=== PATIENT | male | born 1975 | race Hispanic/Latino ===

== ENCOUNTER 2024-04-07 09:24 | Inpatient (IN) | payer MEDICAID ==
[~2024-04-07] VITALS: Ht 182.9 cm; Wt 92.3 kg
[2024-04-07] VITALS (7 sets, daily range): BP systolic 99–116; BP diastolic 71–85
[~2024-04-07 09:24] MED LIST: NORCO 10-325 T1 EACH PO
[2024-04-07] MEDS ORDERED: SODIUM CHLORIDE 0.9% 1,000 ML IV ONE ×2 (09:45→10:00)
[2024-04-07 09:51] LABS: BASOPHILS 0.1 % (0-2); EOSINOPHILS 0.1 % (0-6); HEMATOCRIT 45.9 % (35.0-50.0); HEMOGLOBIN 16.3 g/dL (12.0-18.0); LYMPHOCYTES 12.5 % (24-44); MCH 34.3 (27-36); MCHC 35.5 g/dl (30-36); MCV 96.7 fl (81-99); MONOCYTES 6.8 % (0-12); NEUTROPHILS 80.5 % (39-80); PLATELET COUNT 199 K/uL (140-440); RBC 4.74 M/ul (4.3-5.7); RDW 12.5 (10.5-15.0)
[2024-04-07] MEDS ORDERED: HYDROmorphone HCL 1 MG/ML SYR IV PRN ×3 (10:00→17:45)
[2024-04-07] MEDS ORDERED: ondansetron HCL 4 MG/2 ML VIAL IV ONE (10:00)
[2024-04-07 10:09] LABS: ALBUMIN 3.3 g/dL (3.4-5.0); ALBUMIN/GLOBULIN RATIO 0.8 (1.1-2.4); ANION GAP 15.2 (7-21); BILIRUBIN, TOTAL 2.3 ng/dL (0.2-1.0); BUN/CREATININE RATIO 11.81 (6.0-28.6); CALCIUM 8.4 mg/dL (8.5-10.1); CREATININE, SERUM 1.1 mg/dL (0.70-1.30); POTASSIUM 3.2 mmol/L (3.5-5.1); PROTEIN, TOTAL 7.4 g/dL (6.4-8.2)
[2024-04-07 10:12] LABS: LACTIC ACID, BLOOD 1.8 mmol/L (0.4-2.0)
[2024-04-07] MEDS ORDERED: PIPERACILLIN/TAZOBACTAM 4.5 GM in DEXTROSE 5% 100 ML IV ONE ×2 (10:15→14:30)
[2024-04-07 11:09] LABS: BILIRUBIN, URINE NEGATIVE (negative); BLOOD/HGB, URINE NEGATIVE (Negative); KETONE, URINE TRACE (Negative); LEUK ESTERASE, URINE NEGATIVE (negative); NITRITE, URINE NEGATIVE (negative); PH, URINE 6.5 (5-7)
[2024-04-07] MEDS ORDERED: DEXTROSE 5% - LACTATED RINGERS 1,000 ML IV SCH ×2 (12:00→17:45)
[2024-04-07] MEDS ORDERED: ondansetron HCL 4 MG/2 ML VIAL IV PRN ×3 (12:00→17:45)
[2024-04-07] MEDS ORDERED: LIDOCAINE 1% W/ EPI 1:200,000 30 ML SDV ONE (12:27)
[2024-04-07] MEDS ORDERED: BUPIVACAINE HCL 0.25% 50 ML MDV ONE (12:28)
--- NOTE | 2024-04-07 14:01 | NUR ---
PATIENT TAKEN DOWN TO DAY SURGERY BY OR NURSE IN PREPARATION FOR SURGERY. DR. MEEK STILL TO SEE PATIENT SIGN CONSENT FORM. PATIENT'S SON SHANNAN ROMERO ACCOMPANYING HIM TO DAY SURGERY. PT STATES HIS PAIN IS 4/10 IN ABDOMEN, WHICH IS MUCH MORE TOLERABLE TO HIM THAN THE PAIN HE HAS BEEN HAVING OVER THE LAST SEVERAL DAYS AT HOME. SCDs ON. CHLORAPREP BATH DONE WELL.
--- NOTE | 2024-04-07 14:20 | NUR ---
Spoke with Dennis and his son Dennis for CM assessment. Pt has limitied I[employer], but declined to use the [employer]. Son Dennis is an adult and states he will interpret. Pt understands well and answers most questions without interpretation. Pt lives with his in a 1 story home with his teenage daughters. Son lives in [place] and they will all assist him. Pt states he does not use any DME and is active. He has been off work and does not have insurance. I called Krystin from [employer] and she has already spoken with the pt in the ER. Pt states he does not have a pcp, but has been seen by Tabatha in the past. I called and scheduled him to see Dr. Miranda on 04/15/24 at 1045. Pt denies other needs. They do not use a food bank, food stamps, or other resources. They are aware of [employer], but do not use their services. Pt plans on dc to home with and family when he is cleared for DC.
[2024-04-07] MEDS ORDERED: dexmedeTOMIDine HCl 200 MCG/2 ML VIAL ONE (15:08)
[2024-04-07] MEDS ORDERED: ondansetron HCL 4 MG/2 ML VIAL ONE (15:08)
[2024-04-07] MEDS ORDERED: KETAMINE in NS 50 MG/5 ML SYR ONE (15:08)
[2024-04-07] MEDS ORDERED: ACETAMINOPHEN 1,000 MG/100 ML VIAL ONE (15:08)
[2024-04-07] MEDS ORDERED: LIDOCAINE HCL 2% 5 ML SDV ONE (15:08)
[2024-04-07] MEDS ORDERED: propofoL 200 MG/20 ML VIAL ONE (15:08)
[2024-04-07] MEDS ORDERED: SODIUM CHLORIDE 0.9% 40 ML IV ONE ×2 (15:08→16:33)
[2024-04-07] MEDS ORDERED: ROCURONIUM BROMIDE 50 MG/5 ML SYR ONE (15:08)
[2024-04-07] MEDS ORDERED: DEXAMETHASONE SOD PHOS 4 MG/ML VIAL ONE ×2 (15:08→16:33)
[2024-04-07] MEDS ORDERED: fentaNYL citrate 100 MCG/2 ML VIAL ONE (15:08)
[2024-04-07] MEDS ORDERED: MAGNESIUM SULFATE 1 GM/2 ML VIAL ONE (15:08)
[2024-04-07] MEDS ORDERED: droPERidol 5 MG/2 ML VIAL IV PRN (15:30)
[2024-04-07] MEDS ORDERED: IBLOOD GLUCOSE TEST STRIP 1 EA TEST VI PRN (15:30)
[2024-04-07] MEDS ORDERED: fentaNYL citrate 50 MCG/ML SDV IV PRN (15:30)
[2024-04-07] MEDS ORDERED: NALOXONE HCL 0.4 MG SYR IV PRN (15:30)
[2024-04-07] MEDS ORDERED: Ropivacaine HCl 0.5% 30 ML VIAL ONE (16:33)
[2024-04-07] MEDS ORDERED: KETOROLAC TROMETHAMINE 30 MG/ML VIAL ONE (16:42)
[2024-04-07] MEDS ORDERED: SUGAMMADEX SODIUM 200 MG/2 ML ML ONE (16:42)
--- NOTE | 2024-04-07 17:26 | NUR ---
patient takes no chronic meds
[2024-04-07] MEDS ORDERED: ENOXAPARIN SODIUM 40 MG/0.4 ML SYR SUB-Q SCH (17:43)
[2024-04-07] MEDS ORDERED: PANTOPRAZOLE SODIUM 40 MG/10 ML VIAL IV SCH (17:44)
[2024-04-07] MEDS ORDERED: PROCHLORPERAZINE EDISYLATE 10 MG/2 ML VIAL IV PRN (17:45)
[2024-04-07] MEDS ORDERED: HYDROCODONE/ACETA 5/325 TAB PO PRN (17:45)
[2024-04-07] MEDS ORDERED: ACETAMINOPHEN 325 MG TAB PO PRN (17:45)
[2024-04-07] MEDS ORDERED: ACETAMINOPHEN 650 MG SUPP PR PRN (17:45)
--- NOTE | 2024-04-07 18:08 | NUR ---
PT RETURNED FROM SURGERY. PT IS AWAKE AND ALERT, FOLLOWS COMMANDS AND ANSWERS QUESTIONS. PT SATS ARE 95% ON ROOM AIR, BP 100/71, PULSE 94, AND RR 14. PT INCISION COVERED WITH TAPE AND GUAZE IS CLEAN/DRY/INTACT. PT ABDOMEN IS DISTENDED, BUT DENIES ANY PAIN. PT HAS ICE PACK PLACED ON ABDOMEN. PT EDUCATED ON THE USE OF THE IS AND DEMONSTRATED KNOWLEDGE OF USE. PT LUNGS ARE CLEAR, AND BOWEL TONES ARE HYPOACTIVE. SCD'S PLACED ON PT. ICE CHIPS PROVIDED AT BEDSIDE. FAMILY AT BEDSIDE. PT HAS NO QUESTIONS OR NEEDS AT THIS TIME, CALL [facility] WITHIN REACH.
--- NOTE | 2024-04-07 18:27 | NUR ---
04/07/24 182 Reyna Decker 1727 PT ARRIVED IN PACU NON RESPONSIVE TO NOXIOUS STIMULI. CHIN LIFT HELD BY RN. 1738 PT REACTIVE. CHIN LIFT NOT REQUIRED. 174 ICE TO ABD. PT C/O ALITTLE PAIN. 180 TO ROOM 130. BED PLUGGED IN. REPORT GIVEN TO RN. FAMILY AT BEDSIDE.
--- NOTE | 2024-04-07 18:30 | EKG ---
[facility] [address] [facility] [place], [place] [address] Signed Sinus tachycardia Otherwise normal ECG No previous ECGs available Confirmed by Lucie Carson MD ([id number]) on 04/07/2024 6:29:58 PM Electronically Signed By: LUCIE CARSON 04/07/24 1830 PATIENT NAME: SHANNAN FRAGA Electrocardiogram DATE OF : 79 PHYSICIAN: LUCIE CARSON REPORT #: [id number] REPORT IS CONFIDENTIAL AND NOT TO BE RELEASED WITHOUT AUTHORIZATION
--- NOTE | 2024-04-07 20:00 | NUR ---
REPORT RECEIVED FROM DAY RN - PT RESTING IN BED ALERT WITH MULTIPLE FAMILY AT BEDSIDE. ASSESSMENT COMPLETE. PT DENIES PAIN, DRESSING IS C/D/I WITH ICE APPLIED. VS WNL. URINATING WITHOUT DIFFICULTY IN URINAL.
--- NOTE | 2024-04-07 21:16 | NUR ---
NO RT INTERVENTIONS REQUIRED AND TAKING OFF RT SERVICE. PLEASE CALL WITH CONCERNS OR O2 USE.
[2024-04-07] MEDS ORDERED: CEFEPIME HCL/D5W 2 GM/100 ML PIGGYBACK IV SCH (22:00)
--- NOTE | 2024-04-07 22:02 | NUR ---
PT RESTING IN BED ALERT AND ORIENTED. REPORTS PAIN /, PRN PROVIDED FOR THIS. ICE REMAINS ON ABD. VS WNL, ROOM AIR. PROVIDED LINENS TO STAY THE NIGHT. PT DENIES FURTHER NEEDS. CALL LIGHT IN REACH.
--- NOTE | 2024-04-07 22:29 | NUR ---
PT PLACED ON 2L O2 VIA NC TO SUSTAIN SPO2 <92% WHILE SLEEPING.
[2024-04-08] VITALS (11 sets, daily range): BP systolic 100–137; BP diastolic 66–94
--- NOTE | 2024-04-08 00:19 | NUR ---
PT RESTING COMFORTABLY IN BED WITH OUT SIGNS OF PAIN. VS WNL, NEEDING 2L O2 WHILE SLEEPING. ASSESSMENT UNCHANGED FROM PREVIOUS.
--- NOTE | 2024-04-08 01:40 | NUR ---
PT RESTING IN BED, RR EVEN AND UNLABORED. VS WNL ON MONITOR.
--- NOTE | 2024-04-08 02:21 | NUR ---
PT WAKES EASILY TO SOUND IN ROOM - STATES PAIN IS 4/10 AND REQUESTS PAIN MEDICATION. ICE APPLIED TO MIDLINE. URINAL USED, URINE CONCENTRATED BUT QUANTITY SUFFICENT.
--- NOTE | 2024-04-08 04:37 | NUR ---
PT RESTING IN BED WITH EYES CLOSED, RR EVEN AND UNLABORED. VS WNL ON MONITOR.
--- NOTE | 2024-04-08 05:25 | NUR ---
PT AWAKE IN BED AFTER LAB DRAW. REPORTS PAIN IS 1/10. DENIES NEEDS AT THIS TIME. DRESSING C/D/I, ICE APPLIED TO INCISION. VS WNL.
[2024-04-08 05:31] LABS: BASOPHILS 0.1 % (0-2); HEMATOCRIT 38.4 % (35.0-50.0); HEMOGLOBIN 13.1 g/dL (12.0-18.0); LYMPHOCYTES 6.7 % (24-44); MCH 33.8 (27-36); MCHC 34.2 g/dl (30-36); MCV 98.9 fl (81-99); MONOCYTES 5.5 % (0-12); NEUTROPHILS 87.7 % (39-80); PLATELET COUNT 152 K/uL (140-440); RBC 3.88 M/ul (4.3-5.7); RDW 12.5 (10.5-15.0)
[2024-04-08 05:46] LABS: ANION GAP 11.6 (7-21); BUN/CREATININE RATIO 11.36 (6.0-28.6); CALCIUM 7.8 mg/dL (8.5-10.1); CREATININE, SERUM 0.88 mg/dL (0.70-1.30); MAGNESIUM 2.6 mg/dL (1.8-2.4); PHOSPHORUS, INORGANIC 1.2 mg/dL (2.5-4.9); POTASSIUM 3.6 mmol/L (3.5-5.1)
--- NOTE | 2024-04-08 06:14 | CONS ---
[facility] [address] [place], [place] [address] Signed DATE OF CONSULTATION: 04/07/2024 CHIEF COMPLAINT: Diffuse generalized abdominal pain. HISTORY OF PRESENT ILLNESS: Dennis is a 48-year-old gentleman, who over four days has developed increasing diffuse generalized abdominal pain and now peritonitis. He has had fevers, diarrhea, and emesis. When he realized he was getting worse, he finally came to emergency room for evaluation. He had diffuse peritonitis. His abdomen is moderately distended. White count was actually normal along with the lactic acid. A chest x-ray was unremarkable. The CT scan of abdomen and pelvis shows his ruptured appendix with a 1.7 cm appendicolith in the mid appendix and diffuse ileus and fluid-filled small bowel. He was given IV fluids and Zosyn and I was asked to admit him as a general surgeon on-call while I was operating for another patient. In the meantime, he has been doing well. His son is with him. PAST MEDICAL HISTORY: None. PAST SURGICAL HISTORY: Repair right forearm fracture with metal remaining. SOCIAL HISTORY: He does not smoke or drink. He is , has three children. He drives. He works construction. He is to his , Feroz at [phone]. He prefers the [facility] pharmacy. He has no primary care provider. FAMILY HISTORY: None. REVIEW OF SYSTEMS: He had 10 systems reviewed with the help of his son who is fluently bilingual, but Dennis himself was also fairly bilingual as well. ALLERGIES: None. MEDICATIONS: None. PHYSICAL EXAMINATION: VITAL SIGNS: His blood pressure is 112/85, his heart rate is 108, respiratory rate 28, Electronically Signed By: LATASHA AMBROSE MD 04/08/24 0614 PATIENT NAME: DENNIS FRAGA CONSULTATION DATE OF : 79 REPORT #: [id number] PHYSICIAN: LATASHA AMBROSE MD PCP: NO PRIMARY CARE PHYSICIAN REPORT IS CONFIDENTIAL AND NOT TO BE RELEASED WITHOUT AUTHORIZATION [facility] [address] [place], [place] [address] Signed temperature is 101.3. He is 99% on room air. He is 6 feet tall, 89 kg with a body mass index of 26. GENERAL: Dennis is a 48-year-old gentleman, who is lying supine semi-recumbent in his hospital bed. He is a little diaphoretic, but otherwise doing well. LUNGS: Clear to auscultation bilaterally. HEART: Tachycardic. ABDOMEN: Moderately distended with diffuse peritonitis. LABORATORY DATA: White blood count 5.2, hemoglobin 16, neutrophils 80. Electrolytes unremarkable. UA was negative. Lactic acid 1.8, albumin 3.3. Blood cultures were sent x2. RADIOGRAPHIC STUDIES: A chest x-ray was unremarkable. The CT scan shows the thickened ruptured appendix lying right over the pelvic brim with a 1.7 cm appendicolith in the mid appendix. He has fluid-filled dilated small-bowel consistent with his ileus. ASSESSMENT/PLAN: Dennis sharma is a 48-year-old gentleman, who presents with ruptured appendicitis and appendicolith. He has been admitted, given IV fluids, pain control and antibiotics. I met with Dennis and his son. We reviewed the above findings. We reviewed the location and function of the appendix. We have discussed laparoscopic versus open appendectomy. Dennis is a candidate for an open appendectomy. We have reviewed the expected intraop and postop course. There is risk including, but not limited to bleeding, infection, scarring, change in contour of the skin, damage to bowel, appendiceal stump leak, postoperative intra-abdominal abscess, incisional hernias and other unforeseen comorbidities. Dennis and his son had expressed understanding, wished to proceed. Latasha Ambrose MD ALB/MODL /[id number] cc: Latasha Ambrose MD Electronically Signed By: LATASHA AMBROSE MD 04/08/24 0614 PATIENT NAME: DENNIS FRAGA CONSULTATION DATE OF : 79 REPORT #: [id number] PHYSICIAN: LATASHA AMBROSE MD PCP: NO PRIMARY CARE PHYSICIAN REPORT IS CONFIDENTIAL AND NOT TO BE RELEASED WITHOUT AUTHORIZATION [address] [address] Signed Copies: LATASHA AMBROSE MD ~ Electronically Signed By: LATASHA AMBROSE MD 04/08/24 0614 PATIENT NAME: DENNIS FRAGA CONSULTATION DATE OF : 79 REPORT #: [id number] PHYSICIAN: LATASHA AMBROSE MD PCP: NO PRIMARY CARE PHYSICIAN REPORT IS CONFIDENTIAL AND NOT TO BE RELEASED WITHOUT AUTHORIZATION
--- NOTE | 2024-04-08 06:14 | OR ---
[facility] [address] [place], [place] [address] Signed DATE OF OPERATION: 04/07/2024 SURGEON: Latasha Ambrose MD PREOPERATIVE DIAGNOSES: 1. Acute ruptured appendicitis. 2. Appendicolith. POSTOPERATIVE DIAGNOSES: 1. Acute ruptured appendicitis. 2. Appendicolith. PROCEDURE: Open appendectomy. ESTIMATED BLOOD LOSS: Minimal. FINDINGS: Indeed Dennis had his appendicolith ruptured in the midportion of the appendix and right over the pelvic brim. He had multiple interloop of pus and fibrinous exudate and no abscess cavity. INDICATIONS: Dennis is a 48-year-old gentleman, who for four days had generalized abdominal pain to the point of peritonitis. He was having fevers with diarrhea and emesis. He finally came to the emergency room for evaluation. He was tachycardic and had diffuse peritonitis. White count was normal as was his lactic acid. Chest x-ray was unremarkable. The CT scan of abdomen and pelvis showed his thickened ruptured appendix with the appendicolith in the midportion. He had been given IV fluids, pain control, and Zosyn. I have been asked to admit him as a general surgeon as I was operating earlier in the day. I met with Dennis and his son. We reviewed the above findings. We reviewed the location of function of the appendix. We discussed the need for an open appendectomy in this case. They understand the expected intraop and postop course. There is risk including, but not limited to bleeding, infection, scarring, change in contour of the skin, damage to bowel, appendiceal stump leak, intra-abdominal abscess, incisional hernias and other unforeseen comorbidities. They had expressed understanding and wished to proceed. DESCRIPTION OF PROCEDURE: Electronically Signed By: LATASHA AMBROSE MD 04/08/24 0614 PATIENT NAME: DENNIS FRAGA OPERATIVE REPORT DATE OF : 79 REPORT #: [id number] PHYSICIAN: LATASHA AMBROSE MD PCP: NO PRIMARY CARE PHYSICIAN REPORT IS CONFIDENTIAL AND NOT TO BE RELEASED WITHOUT AUTHORIZATION [facility] [address] [place], [place] [address] Signed Dennis was taken into the operating room and placed in a supine position under general endotracheal tube anesthesia. He was already on preoperative Zosyn. SCDs were utilized. A Kevin catheter was inserted with return of clear yellow urine. He was prepped and draped in the usual sterile fashion. He remained moderately distended and somewhat firm. We used a standard periumbilical incision and carried that in the abdomen with the help of the cautery. Of course, we encountered copious amounts of liquid pus. We used several liters of fluid to irrigate out his abdomen and suction until clear. We could easily see the cecum and the appendix was normal at the base. We divided that between Pean clamps and 0-Vicryl sutures. We gently cauterized the base of the appendix attached to the cecum. After this, it took me some blunt dissection a little bit of cautery to bring the appendix up off the pelvic brim. We had carefully take down the mesoappendix with Pean clamps and 0 Vicryl ties. Fortunately, we had no bleeding. We could easily see the appendicolith ruptured through the midportion of the appendix. We could easily see the appendix from the base all the way to the tip. After this, we irrigated out the abdomen again with about 2 L of warm saline. We went up and over the liver up into the around the stomach and all the way down the pelvis until all the turbid fluid was gone. Once we went through all the loops of small bowel, we simply can remove all the fibrinous exudate. There was no distinct abscess cavity, so therefore no drain was left in place. The bowel had been returned to its position. We closed the midline fascia with interrupted [id number] #1 PDS sutures. I injected local anesthetic in the abdominal wall from the umbilicus cephalad to the top of the incision. Later our nurse production machinist placed a bilateral TAP blocks. The wound was irrigated and suctioned out until clear. We closed the dermis with interrupted 3-0 subcuticular Monocryl sutures. The skin edges were reapproximated with lisa. Dry gauze and tape had been applied. His Kevin catheter had been removed without difficulty. He was awakened from his anesthesia, extubated in the OR, and taken to recovery room in stable condition. Latasha Ambrose MD ALB/MODL /[id number] cc: Latasha Ambrose MD Electronically Signed By: LATASHA AMBROSE MD 04/08/24 0614 PATIENT NAME: DENNIS FRAGA OPERATIVE REPORT DATE OF : 79 REPORT #: [id number] PHYSICIAN: LATASHA AMBROSE MD PCP: NO PRIMARY CARE PHYSICIAN REPORT IS CONFIDENTIAL AND NOT TO BE RELEASED WITHOUT AUTHORIZATION [facility] [address] [facility] [address] [facility] [place], [place] [address] Signed Copies: LATASHA AMBROSE MD ~ Electronically Signed By: LATASHA AMBROSE MD 04/08/24 0614 PATIENT NAME: DENNIS FRAGA OPERATIVE REPORT DATE OF : 79 REPORT #: [id number] PHYSICIAN: LATASHA AMBROSE MD PCP: NO PRIMARY CARE PHYSICIAN REPORT IS CONFIDENTIAL AND NOT TO BE RELEASED WITHOUT AUTHORIZATION
[2024-04-08] MEDS ORDERED: SODIUM PHOSPHATE 30 MMOL in DEXTROSE 5% 250 ML IV ONE (06:15)
--- NOTE | 2024-04-08 10:38 | NUR ---
UR CLINICAL REVIEW: MARIA DE JESUS ESCOBAR (STATE MEDICAID) OBS 04/07/24 @ 1104 YES AUTH PENDING CLINICAL REVIEW PLAN TO DC HOME WHEN STABLE.
--- NOTE | 2024-04-08 13:12 | NUR ---
RECEIVED REPORT FROM ERYN VELA. PT BROUGHT TO FLOOR FROM CCU ON BED. AT THE BEDSIDE. PT STATES PAIN IS 6/10 CURRENTLY, BUT THAT HE JUST RECEIVED PAIN MEDICATION PRIOR TO LEAVING CCU. VSS. MIDLINE INCISION EDGES WELL APPROXIMATED, JULIANNE IN PLACE, NO REDNESS, SWELLING, OR DRAINAGE PRESENT. PT STATES HE FEELS THE ABDOMINAL DISTENTION HAS DECREASE SINCE THIS MORNING, ABDOMEN DISTENDED, TENDER TO PALPATION, BOWEL TONES REMAIN HYPOACTIVE. PT EDUCATION ON THE IMPORTANCE OF WALKING, PT STATES HE WILL WALK. PT REQUESTS REFILL IN ICE PACK, GIVEN. PT STATES NO FURTHER NEEDS AT THIS TIME, CALL LIGHT WITHIN REACH.
--- NOTE | 2024-04-08 14:27 | NUR ---
FAMILY AT THE BEDSIDE. PT STATES NO NEEDS AT THIS TIME, CALL LIGHT WITHIN REACH.
--- NOTE | 2024-04-08 16:30 | NUR ---
PT C/O IRRITATION IN EYES, STATES HE HAD THIS HAPPEN YESTERDAY WELL AND THAT THE CCU NURSE PUT DROPS IN HIS EYES THAT HELPED. THIS RN CALLS CCU RN, CCU RN STATES NS WAS UTILIZED FOR THIS. THIS RN USES NS TO WASH EYES, PT STATES THIS IS VERY HELPFUL, STATES IRRITATION IS DECREASED. PT STATES NO FURTHER NEEDS AT THIS TIME, CALL LIGHT WITHIN REACH.
--- NOTE | 2024-04-08 17:02 | NUR ---
PT WALKING IN HALLWAY WITH FAMILY.
--- NOTE | 2024-04-08 19:33 | NUR ---
CNAS ASSISTED PT TO SHOWER. IVS COVERED FOR SHOWER. CNAS CHANGED PT BED LINENS. PT INDEPENDANTLY SHOWERING. FAMILY IN ROOM AND PT INSTRUCTED ON HOW TO USE BATHROOM CALL LIGHT.
--- NOTE | 2024-04-08 19:35 | NUR ---
REPORT RECIEVED FROM DAY SHIFT RN. PATIENT RESTING IN BED WITH CNAs IN THE ROOM. NO CURRENT NEEDS. CALL LIGHT IN REACH.
--- NOTE | 2024-04-08 20:10 | NUR ---
PT FINISHED SHOWER. PT BACK IN BED WITH SCDS ON. IV COVERING REMOVED. RN NOTIFIED THAT PT CAN BE RECONNECTED TO IV PUMP. PT STATES NO FURTHER NEEDS AT THIS TIME. CALL LIGHT WITHIN REACH.
--- NOTE | 2024-04-08 20:29 | NUR ---
PATIENT RESTING IN BED WITH FAMILY IN ROOM. VS AND I&Os OBTAINED AND RECORDED. BOTH IVs FLUSHED WNL. ASSESSMENT COMPLETE. PATIENT STATES TENDERNESS UPON PALPATION ON ABD. BOWEL TONES ACTIVE. PATIENT DENIES FURTHER NEEDS. CALL LIGHT IN REACH. ICE PLACED ON ABD. SCDs IN PLACE.
--- NOTE | 2024-04-08 20:37 | NUR ---
ALARM SOUNDING FROM IV. IN LA AC; MOVED TO THE RIGHT HAND, SL LEFT. EDUCATED PT AND FAMILY TO WHY. NO OTHER NEEDS AT THIS TIME.
--- NOTE | 2024-04-08 22:05 | NUR ---
PATIENT RESTING IN BED. SCHEDULED IV ABX AND IV FLUID INFUSING PER ORDER. NEW TUBING USED. PATIENT REPORTS 8/10 ABD PAIN THAT IS IN THE MIDDLE OF HIS ABD THAT RADIATES TOWARD THE RIGHT. PRN PAIN MEDICATION ADMINSITERED WITH VERY SMALL SIP OF WATER. NO FURTHER NEEDS. CALL LIGHT IN REACH. SCDs IN PLACE.
--- NOTE | 2024-04-08 23:11 | NUR ---
BUILDING CLEANING SUPERVISOR PLACED PT ON CPOX AT REQUEST OF RN. PT STATES NO FURTHER NEEDS AT THIS TIME. CALL LIGHT WITHIN REACH.
--- NOTE | 2024-04-09 01:07 | NUR ---
PATIENT RESTING IN BED. RESPIRATIONS EVEN AND UNLABORED. CALL LIGHT IN REACH.
--- NOTE | 2024-04-09 02:12 | NUR ---
IV PUMP ALARMING. PATIENT IV ABX FINIHSED. PATIENT RESTING WITH EYES CLOSED. RESPIRATIONS EVEN AND UNLABORED. CALL LIGHT IN REACH.
--- NOTE | 2024-04-09 03:58 | NUR ---
PATIENT RESTING IN BED ON BACK WITH EYES CLOSED. RESPIRATIONS EVEN AND UNLABORED. CALL LIGHT IN REACH.
--- NOTE | 2024-04-09 04:33 | NUR ---
CALL LIGHT ANSWERED. PATIENT REQUESTING ICE CHIPS. ICE CHIPS GIVEN. NO FURTHER NEEDS AT THIS TIME. CALL LIGHT WITHIN REACH.
[2024-04-09 05:28] VITALS: BP 124/75
--- NOTE | 2024-04-09 05:29 | NUR ---
DIE TECHNICIAN ENTERED ROOM AND OBTAINED VITALS AND I&O. PT STATES NO FURTHER NEEDS AT THIS TIME. CALL LIGHT WITHIN REACH.
--- NOTE | 2024-04-09 05:56 | NUR ---
PATIENT RESTING IN BED WITH EYES CLOSED. RESPIRATIONS EVEN AND UNLABORED. NEW BAG IV ABX AND IV FLUID INFUSING PER ORDER. NO FURTHER NEEDS. CALL LIGHT IN REACH.
--- NOTE | 2024-04-09 09:17 | NUR ---
Patient awake in bed, alert and oriented x4. Iv site remains patent, fluids/abx infusing per provider order. Patient reports tolerable abdominal pain. Midline abdominal incision is closed, well approx with lisa, no notable drainage. Abdomen has scant generalized swelling, active bowel tones x4 quadrants, patient denies passing flatus. Patient encouraged to ambulate in hallway frequently, pt receptive to plan. Patient's at bedside involved with cares. No current needs, personal supplies and call light within reach.
[2024-04-09 09:36] VITALS: BP 133/92
--- NOTE | 2024-04-09 10:22 | NUR ---
pt ambulating in the hallway indpendently with family as a stand by assist
--- NOTE | 2024-04-09 10:28 | NUR ---
Patient ambulating in hallway, steady gait noted, pt tolerating well.
--- NOTE | 2024-04-09 10:29 | NUR ---
BRIEFLY CONNECTED WITH PT AND WHILE AMBULATING IN HALLS. LISTENED EMPATHETICALLY PT DESCRIBED RECENT HEALTH CHALLENGES; PROVIDED SUPPORTIVE PRESENCE. PT EXPRESSED HUMOR, OPTIMISM.
[2024-04-09 13:34] VITALS: BP 124/93
--- NOTE | 2024-04-09 14:00 | NUR ---
Spoke with pt and and they deny needs. They are walking in the butler as pt feels his abd is bloated. Not cleared for dc at this time.
--- NOTE | 2024-04-09 14:29 | NUR ---
Patient sitting up in bed visiting with family, no acute distress. Patient requesting pain medication for reports of 6/10 abdominal pain, admin two tabs norco 7.5/325mg po at this time. Scheduled abx started per provider order. Patient continues to eating small bits of ice chips for comfort. Patient denies nausea. No needs at this time. Patient encouraged to continue walking in hallway, as tolerable. Call light within pt reach.
[2024-04-09 18:31] VITALS: BP 136/95
--- NOTE | 2024-04-09 18:43 | NUR ---
Admin two tabs norco 7.5/325mg po for reports of 7/10 abd pain. Patient continues to deny passing flatus. No nausea reported today. Patient reports he will get up shortly once pain is better controlled. No current needs, personal supplies and call light within reach.
--- NOTE | 2024-04-09 19:05 | NUR ---
BEDSIDE REPORT RECEIVED FROM ABELARDO RN, PT AWAKE AND ALERT, VISITING WITH FAMILY, IVF INFUSING WELL, PT WITHOUT COMPLAINTS AT THIS TIME.
--- NOTE | 2024-04-09 19:41 | NUR ---
PT UP AMBULATING IN [place] WITH FAMILY AT SIDE, PT APPEARS TO BE TOLERATING AMBULATION WELL, PT WITHOUT REQUESTS AT THIS TIME.
[2024-04-09 20:13] VITALS: BP 123/89
--- NOTE | 2024-04-09 20:22 | NUR ---
UNDERWRITING CLERKS SUPERVISOR ENTERED ROOM AND OBTAINED VITALS AND I&O. PT STATES NO FURHTER NEEDS AT THIS TIME. CALL LIGHT WITHIN REACH. FAMILY IN ROOM.
--- NOTE | 2024-04-09 22:00 | NUR ---
PT BACK TO BED, ASSISTED BY SON, ASSESSMENT COMPLETED, FAMILY ASKING QUESTIONS THROUGH SON CONCERNING WHAT TO LOOK IF INCISON BECOMES INFECTED, DISCUSSED FEVER, INCREASED PAIN, REDDNESS AT SITE, DISCHARGE FROM INCISION (YELLOW, GREEN), PT AND FAMILY VOICE UNDERSTANDING, PT DENIES FEELING FLATUS BUT HAS ACTIVE BT'S IN ALL QUADS, FRESH CUP OF ICE GIVEN, PT ASSISTED UP TO BR TO VOID WITH SON'S HELP.
--- NOTE | 2024-04-09 22:36 | NUR ---
FAMILY LEFT ROOM AND NOTIFIED THAT PT WAS BACK IN BED. VASCULAR SONOGRAPHER PLACED SCDS ON PT. PT STATES NO FURTHER NEEDS AT THIS TIME. CALL LIGHT PLACED WITHIN REACH.
--- NOTE | 2024-04-09 22:39 | NUR ---
NURSE TO ROOM, PT RESTING IN BED, SCDS PLACED ON PER PT'S REQUEST BY HARLEY CAMP, CHILDREN GONE FOR THE NIGHT, REMAINS AT BEDSIDE AND IS VERY SUPPORTIVE, IVF INFUSING WELL PER RIGHT HAND, D5LR CONTS AT 100ML/HR, ANTIBODIC INFUSING PER ORDER.
--- NOTE | 2024-04-09 22:43 | NUR ---
PT DENIES NEED FOR PAIN MED AT THIS TIME, PT STATES HE WOULD LIKE TO WAIT UNTIL APPROX [phone]. MEDICINE HELD AT THIS TIME
[2024-04-09 22:51] VITALS: BP 123/89
--- NOTE | 2024-04-09 22:51 | NUR ---
VS WHICH WERE DONE AT 2013 BY HARLEY CAMP REVIEWED, PLAN TO MONITOR.
--- NOTE | 2024-04-10 00:31 | NUR ---
PT RESTING WITH EYES CLOSED, AWAKEN PER EARILIER REQUEST, MEDICATED FOR PAIN / IN ABDOMEN, IVF INFUSING WELL, PT W/O OTHER REQUESTS.
--- NOTE | 2024-04-10 02:00 | NUR ---
PT APPEARS TO SLEEP, RESP EVEN AND REG, IVF INFUSING WELL.
--- NOTE | 2024-04-10 03:10 | NUR ---
PT AWAKEN WITH IV ALARM, DENIES PAIN AT THIS TIME, IVF INFUSING WELL, SITE INTACT.
[2024-04-10 05:12] VITALS: BP 121/82
--- NOTE | 2024-04-10 05:17 | NUR ---
DIXONAC OPERATOR OBTAINED VITALS AND I&O. PT STATES HE IS HAVING SOME PAIN. RN NOTIFIED. NO FURTHER NEEDS AT THIS TIME. CALL LIGHT PLACED WITHIN REACH.
--- NOTE | 2024-04-10 05:23 | NUR ---
PT REQUESTING PAIN MED FOR ABDOMINAL PAIN 05/12, MEDICATED PER ORDER WITH 2 NORCO, FRESH ICE GIVEN, IVF INFUSING WELL, SITE IN RIGHT HAND PATENT, PT DENIES OTHER NEEDS.
--- NOTE | 2024-04-10 06:26 | NUR ---
0512 VS REVIEWED AND STABLE FOR PT, PT AFEBRILE AT THIS TIME.
--- NOTE | 2024-04-10 07:25 | NUR ---
Patient resting in bed, eyes closed, respirations even and non labored. Patient has no notable distress. IV fluids infusing per provider order. awake at bedside. No needs at this time, call light within reach.
--- NOTE | 2024-04-10 09:18 | NUR ---
Admin two tabs Gillham 5/325mg po at this time for reports of 6/10 abdominal pain.
--- NOTE | 2024-04-10 10:07 | NUR ---
IV CONTINUES TO BEEP DISTAL OCCLUSION. FLUSHED WITH SALINE WHICH DID HAVE BLOOD BACKUP IN LINE, FLUSHED WITHOUT LEAKING PAIN. IV READJUSTED AND CONNECTED. INFUSING AT THIS TIME. PT AT BEDSIDE, THEY ARE GOING TO GO AMBULATE THE HALLWAY AT THIS TIME. PT DENIES ANY FURTHER NEEDS, ALL PT CARE NEEDS MET.
--- NOTE | 2024-04-10 11:11 | NUR ---
Patient ambulating in hallway at this time. Patient has no notable distress. Son chandan with patient.
--- NOTE | 2024-04-10 13:43 | NUR ---
Patient sitting up in bed visiting with his family, no acute distress. Admin two tabs norco 5/325mg po for reports of 7/10 abdominal pain. Patient denies passing flatus as of yet, no reported nausea. Patient has ambulated in hallway several times this shift. No current needs, personal supplies and call light within reach.
[2024-04-10 13:49] VITALS: BP 131/94
[2024-04-10 18:18] VITALS: BP 123/83
--- NOTE | 2024-04-10 18:19 | NUR ---
Patient ambulated in hallway, tolerated well. Patient back to room, reports 8/10 abdominal pain. Admin one tab Story 5/325mg po and dilaudid 1MG slow IV push. IV site remain patent, abx and cont fluids infusing per provider order. Patient's family at bedside, no further needs at this time.
--- NOTE | 2024-04-10 19:20 | NUR ---
SHIFT REPORT RECEIVED FROM ABELARDO RN, PT ASLEEP, RESP EVEN AND REG, 3 FAMILY MEMBERS AT BEDSIDE, IVF AND ANTIBODICS INFUSING WELL, HOB ELEVATED, SIDE RAILS UP X 2, ASSUMING CARE OF PT.
--- NOTE | 2024-04-10 20:20 | NUR ---
PT RESTING WITH EYES CLOSED, RESP EVEN AND REG, AWAKEN FOR VS, NOTED TEMP 99.6 ORALLY, OTHER VS STABLE, ENCOURAGED USE OF I/S, PT USES I/S UP TO APPROX 750ML WITH GOOD EFFORT, PT PLANNING ON AMBULATING IN [place] WITH FAMILY SOON, PT STATES HIS PAIN IS GOOD AT ABOUT 2/10, ASSESSMENT COMPLETED, BS CLEAR BUT DIM IN THE BASES, ABDOMEN REMAINS DISTENDED BUT SOFT TO PALPATION, ACTIVE BT'S X 4 QUADS, NO PASSAGE OF GAS OR BM YET, PT DENIES N/V, SIPS OF ICE PERIODICALLY, IV SITE PATENT. PT WITHOUT OTHER REQUESTS.
[2024-04-10 20:24] VITALS: BP 120/86
[2024-04-10 20:46] VITALS: BP 120/86
--- NOTE | 2024-04-10 22:00 | NUR ---
PT UP AMBULATING IN THE HALLS, TOLERATING WELL, GAIT STEADY.
--- NOTE | 2024-04-10 22:55 | NUR ---
PT UP SITTING ON COUCH, WITHOUT COMPLAINTS AT THIS TIME, ANTIBODIC HUNG AND INFUSING PER ORDER, DAUGHTERS AT BEDSIDE, PLANNING TO SPEND THE NIGHT.
--- NOTE | 2024-04-10 23:37 | NUR ---
PT BACK TO BED, REQUESTING PAIN MED FOR INCISIONAL PAIN 05/12, PT REQUESTING 2 NORCO, GIVEN PER ORDER, IVF INFUSING WELL, SITE INTACT.
[2024-04-11] VITALS (7 sets, daily range): BP systolic 110–134; BP diastolic 73–89
--- NOTE | 2024-04-11 00:40 | NUR ---
PT APPEARS TO SLEEP, RESP EVEN AND REG, WITHOUT DISTRESS.
--- NOTE | 2024-04-11 02:20 | NUR ---
PT CONTINUES TO SLEEP, RESP EVEN AND REG.
--- NOTE | 2024-04-11 02:20 | NUR ---
PT CONTINUES TO SLEEP, RESP EVEN AND REG.
--- NOTE | 2024-04-11 04:05 | NUR ---
PT AWAKEN BY IV ALARM, NEW BAG OF D5LR HUNG AND CONTINUES TO INFUSE AT 100ML/HR, SITE PATENT, VS DONE, TEMP NOW 99.2 PO, PT REQUESTING 1 NORCO FOR INCISIONAL PAIN OF 5/10, MEDICATED PER ORDER, ABDOMEN REMAINS DISTENDED WITH HYPOACTIVE BT'S UPPER QUADS AND ACTIVE LOWER, ICE BAG TO ABDOMEN PER PT'S REQUEST, PT RESTING.
--- NOTE | 2024-04-11 06:25 | NUR ---
PT APPEARS TO SLEEP, RESP EVEN AND REG, RT A/B HUNG AND INFUSING PER ORDER, PT VOIDING WELL.
--- NOTE | 2024-04-11 07:10 | NUR ---
Pt report received from ERYN Salamanca
--- NOTE | 2024-04-11 09:30 | NUR ---
Pt is ambulating the hallways with his daughter, denies dizziness, minimal pain, no nausea. IVF infusing. No pain, redness, swelling, leaking at IV site. Pt is still belching, no flatus yet.
--- NOTE | 2024-04-11 10:49 | NUR ---
In with pt for hourly rounding. Pt is sitting up on the couch, leaned back against the cushions in a relaxed posture with his head laid back. He is awake, alert, and oriented. He reports his pain is at a 5 out of 10 after all of his walking, but he declines pain meds at this time. He accepted an ice pack. Pt denies further needs at this time but was encouraged to use the call light before his pain gets unbearable and he verbalized that he understands. Urinal placed within reach, call light within reach. Pt's personal belongings within reach.
--- NOTE | 2024-04-11 12:00 | NUR ---
Pt is up in chair, visiting with a friend. Denies needs at this time.
--- NOTE | 2024-04-11 15:48 | NUR ---
Respond to call light. Pt finished with shower. Pt's daughter assisting pt with drying his legs and feet. Pt back to sit at the edge of his bed. IVF infusing per order. Pt requesting pain meds, advised him that it's an hour too soon but that I will bring them when it's time. Call light, personal belongings, and bedside table within reach. Warm blanket and clean no-slip socks provided.
--- NOTE | 2024-04-11 19:10 | NUR ---
SHIFT REPORT RECEIVED FROM MIRELA CERNA, ASSUMING CARE OF PT, FAMILY INTO VISIT.
--- NOTE | 2024-04-11 19:30 | NUR ---
Pt has been awake and visiting with family/friends for the majority of this shift. He has ambulated the hallways several times today, walking several laps at a time, tolerated well. He has requested pain medication approximately every 3 to 4 hours, possibly due to his increase in activity. The pt has been up in his room, up to the bathroom to void, and up in chair multiple times this shift. He has showered (taking a lengthy one), and is tolerating ice chips well. BT have been active and he has been belching, but no flatulence. Pt has been using ice to incision. He uses the call light appropriately. He has had no nausea/no vomiting.
--- NOTE | 2024-04-11 19:50 | NUR ---
PT RESTING IN BED, ALERT, STATES HE GOT PAIN MEDICATION APPROX 2 HOURS AGO AND MAY NEED MORE IN ABOUT 2 HOURS, IV A/B INFUSING WELL, FAMILY AT BEDSIDE, VS DONE, PT AFEBRILE AT THIS TIME, IV SITE PATENT, ICE TO ABDOMEN, PT PREPARING TO VOID PER URINAL, ASSISTING AT THIS TIME.
--- NOTE | 2024-04-11 22:47 | NUR ---
PT AWAKE AND ALERT, SITTING UP ON THE COUCH, BACK TO BED, PT APPEARS UNCOMFORTABLE, REQUESTING PAIN MED, MEDICATED WITH 2 NORCO PER ORDER FOR PAIN 03/12, RT A/B HUNG PER ORDER, IV SITE LEFT AC, PATENT, D5LR INFUSING AT 100ML/HR, ASSESSMENT COMPLETED, SURGICAL INCISION REDDENED ON EDGES, JULIANNE INTACT, NO DRAINAGE NOTED, PLAN TO MONITOR, PT STATES HE HAS NOT PASSED FLATUS YET, PT REPORTS SOME NAUSA, MEDICATED WITH ZOFRAN 8MG SLOW IV PUSH PER ORDER, PT REMAINS NPO WITH SMALL AMOUNT ICE CHIPS AND SIPS WATER WITH PO MEDS, BT'S HYPOACTIVE UPPER QUADS, ACTIVE BTS LLQ HEARD. PT APPEARS TIRED, ATTEMPTING TO SLEEP. AT BEDSIDE AND SUPPORTIVE.
[2024-04-12] VITALS (9 sets, daily range): BP systolic 111–131; BP diastolic 80–93
--- NOTE | 2024-04-12 00:15 | NUR ---
PT APPEARS TO SLEEP, RESP EVEN AND REG, HOB ELEVATED, IVF INFUSING WELL.
--- NOTE | 2024-04-12 01:08 | NUR ---
PT AWAKE USING THE URINAL, ASSISTING, PT DENIES NEEDS AT THIS TIME.
--- NOTE | 2024-04-12 02:30 | NUR ---
PT AWAKE, NEW BAG OF D5LR HUNG, INFUSING WELL AT 100ML/HR, PT STATES HE WOULD LIKE PAIN MEDICATION AT APPROX 0300, FRESH ICE BAG GIVEN FOR ABDOMEN AND 1/2 CUP OF ICE CHIPS GIVEN, PT RESTING WITH EYES CLOSED.
--- NOTE | 2024-04-12 03:02 | NUR ---
PT RESTING WITH EYES CLOSED, AWAKEN PER REQUEST, AWAKENS EASILY, REPORTS PAIN 6/10, MEDICATED WITH 2 NORCO PER REQUEST, ABDOMEN ASSESSED, BTS MORE ACTIVE, NO REPORT OF FLATUS, INCISION APPEARS TOOLROOM CHECKER RED ON BOARDERS, PT WITHOUT OTHER REQUESTS.
--- NOTE | 2024-04-12 04:20 | NUR ---
PT APPEARS TO SLEEP, RESP EVEN AND REG.
[2024-04-12 05:18] LABS: BASOPHILS 0.3 % (0-2); HEMOGLOBIN 13.3 g/dL (12.0-18.0)
[2024-04-12 05:20] LABS: EOSINOPHILS 0.7 % (0-6); HEMATOCRIT 38.7 % (35.0-50.0); LYMPHOCYTES 11.1 % (24-44); MCH 33.6 (27-36); MCHC 34.4 g/dl (30-36); MCV 97.6 fl (81-99); MONOCYTES 12.8 % (0-12); NEUTROPHILS 75.1 % (39-80); PLATELET COUNT 335 K/uL (140-440); RBC 3.96 M/ul (4.3-5.7); RDW 12.6 (10.5-15.0)
[2024-04-12 05:29] LABS: ANION GAP 10.1 (7-21); BUN/CREATININE RATIO 11.66 (6.0-28.6); CALCIUM 7.9 mg/dL (8.5-10.1); CREATININE, SERUM 0.6 mg/dL (0.70-1.30); MAGNESIUM 2.1 mg/dL (1.8-2.4); PHOSPHORUS, INORGANIC 2.8 mg/dL (2.5-4.9); POTASSIUM 3.1 mmol/L (3.5-5.1)
--- NOTE | 2024-04-12 06:55 | NUR ---
DR MEEK UPDATED ON PT'S STATUS REGUARDING DISTENTION, AND PTS CURRENT PAIN AND BURPING. NO NEW ORDERS GIVEN AT THIS TIME.
[2024-04-12] MEDS ORDERED: POTASSIUM CHLORIDE 40 MEQ,LIDOCAINE HCL 1% 40 MG in DEXTROSE 5% 500 ML IV ONE (07:00)
--- NOTE | 2024-04-12 07:05 | NUR ---
Pt report received from RN Lianet Mensah. Pt is resting with eyes closed, supine in bed, breathing regular, even, and non-labored. Side rails up x4, call light in reach. in room. Pt awakens easily to voice. LCTA, HRRR, Abdomen distended and moderately firm, some tenderness with palpation, pt is belching but no flatus, no bm, encouraged him to eat his ice chips. He has been ambulating a lot yesterday and stated that he would like to go walking soon. IV KCL hung per emar, running with cefepime per emar (pharmacy confirmed compatibility). IV Site patent, no redness, no swelling, no leaking.
--- NOTE | 2024-04-12 07:52 | NUR ---
RN TO ROOM, VS DONE, PT APPEARS UNCOMFORTABLE, PT REQUESTING PAIN MED, MEDICATED WITH DILAUDID 1MG IV DUE TO TOO SOON FOR NORCO, PAIN 6/10, ABDOMEN REMAINS DISTENDED, ACTIVE DISTANT BTS ALL QUADRANTS BUT RLQ HYPOACTIVE, INCISION UNCHANGED, IV A/D INFUSING WELL, AT BEDSIDE AND SUPPPORTIVE, PT VOIDING PER URINAL SHOAIB URINE.
--- NOTE | 2024-04-12 09:54 | NUR ---
PT IS UP AMBULATING THE HALLWAYS WITH HIS AND BROTHER
--- NOTE | 2024-04-12 10:35 | NUR ---
UR CONCURRENT REVIEW: [facility] [place]- CRITERIA FOR DC NOT MET. VARIANCE COMPLETED. [facility] INPATIENT 04/12/24 @ 0234 CLINICALS SENT FOR REVIEW, AWAITING AUTH DISCHARGE TO HOME WHEN STABLE 04/15/24
--- NOTE | 2024-04-12 11:21 | NUR ---
Pt has been ambulating the hallway with his several times already this morning. He has been walking around his room as well.
--- NOTE | 2024-04-12 11:39 | NUR ---
PATIENT IS UP IN THE HALLWAY WALKING. PER MD NOTE, THE PATIENT WILL BE HERE LONGER WAITING FOR THE GI FUNCTION TO RETURN. WILL CONTINUE TO MONITOR.
--- NOTE | 2024-04-12 13:50 | NUR ---
RECEIVED REPORT FROM ERYN DIETZ. PT AWAKE IN ROOM, STATES PAIN IS 6/10 AND REQUESTS PRN PAIN MEDICATION, GIVEN. PT STATES NO FURTHER NEEDS AT THIS TIME. AT THE BEDSIDE, CALL LIGHT WITHIN REACH.
--- NOTE | 2024-04-12 17:16 | NUR ---
PT UP TO CHAIR, AWAKENS WHEN THIS RN ENTERS ROOM. PT STATES PAIN IS 2/10, DENIES NEED FOR PAIN MEDICATION AT THIS TIME. PT DENIES ANY FURTHER NEEDS AT THIS TIME. CALL LIGHT WITHIN REACH.
--- NOTE | 2024-04-12 19:25 | NUR ---
SHIFT REPORT RECEIVED FROM JEREMIAH CERNA, ASSUMING CARE OF PT.
--- NOTE | 2024-04-12 19:55 | NUR ---
PT SITTING UP IN RECLINER, ALERT, VISITING WITH FAMILY, STATES HE IS FEELING BETTER TODAY, STILL HASN'T PASSED GAS BUT FEELS A LITTLE LESS DISTENDED, REPORTS HE HAS BEEN WALKING FREQUENTLY TODAY, VS STABLE AFEBRILE, IV FLAGYL INFUSING AT THIS TIME PER LEFT AC, SITE INTACT, PT REQUESTING PAIN MED FOR PAIN 03/12, PT MEDICATED WITH 2 NORCO PER REQUEST. PT SEEMS ENCOURAGED WITH PROGRESS MADE TODAY.
--- NOTE | 2024-04-12 20:30 | NUR ---
PT RESTING QUIETLY WITH EYES CLOSED, REMAINS IN RECLINER, FAMILY REMAINS AT BEDSIDE, IV FLAGYL COMPLETE, IV BACK TO D5LR, INFUSING WELL AT 100ML/HR.
--- NOTE | 2024-04-12 22:10 | NUR ---
PT RESTING IN BED, AWAKE, STATES HE IS FEELING BETTER AFTER PAIN MED, PAIN NOW 11/12, ASSESSMENT COMPLETED, ICE TO ABDOMEN, PT DENIES NEEDS AT THIS TIME, RESTING, REMAINS AT BEDSIDE.
--- NOTE | 2024-04-12 23:45 | NUR ---
PT APPEARS TO SLEEP, RESP EVEN AND REG, IVF INFUSING WELL.
--- NOTE | 2024-04-13 01:08 | NUR ---
PT APPEARS TO SLEEP, RESP EVEN AND REG, WITHOUT DISTRESS.
--- NOTE | 2024-04-13 02:22 | NUR ---
PT AWAKE, REQUESTING PAIN MED FOR ABDOMEN PAIN 04/12, PT MEDICATED PER ORDER WITH 2 NORCO, VOIDING WELL, FRESH ICE FOR ABDOMEN GIVEN, IVF INFUSING WELL.
--- NOTE | 2024-04-13 04:15 | NUR ---
PT ASLEEP, RESP EVEN AND REGL
[2024-04-13 06:15] VITALS: BP 125/79
--- NOTE | 2024-04-13 06:23 | NUR ---
PT AWAKE AND ALERT, DR MEEK INTO VISIT PATIENT, VS STABLE, AFEBRILE, PT DENIES NEED FOR PAIN MEDICINE, STATES PAIN 3/10, FRESH ICE BAG TO ABDOMEN, IV ANTIBODIC HUNG AND NEW BAG OF D5LR HUNG, SITE INTACT.
--- NOTE | 2024-04-13 08:04 | NUR ---
Board has been updated and call light has been placed within reach. No request from patient
--- NOTE | 2024-04-13 08:39 | NUR ---
Patient awake, alert and oriented x4, no acute distress. Patient reports 6/10 abdominal pain, admin two tabs norco 5/325mg po at this time. Active bowel tones x4 quadrants, pt denies nausea. Patient's IV site remains patent, fluids infusing per provider order.
[2024-04-13 09:34] VITALS: BP 128/85
--- NOTE | 2024-04-13 11:08 | NUR ---
language interpreter ID # [id number] for communication with patient. Patient requesting language interpreter for communication this visit related to cares. Patient reports he can only understand a small amount of information from staff. Signature obtained for language interpreter use.
--- NOTE | 2024-04-13 11:30 | NUR ---
Admin dilaudid 1mg IV slow push for reports of 7/10 abdominal pain. Ice pack also provided per pt request. Patient denies passing flatus.
--- NOTE | 2024-04-13 13:10 | NUR ---
Patient up ambulating in hallway, tolerating well. Patient reports his pain is tolerable, 3/10 per pt report. No current needs, personal supplies and call light within reach.
[2024-04-13 13:35] VITALS: BP 118/81
--- NOTE | 2024-04-13 14:18 | NUR ---
Admin two tabs norco 5/325mg po. Patient verbalized he wanted two pain pills at this time for 7/10 abdominal pain. Patient declined auto camp attendant use at this time. Daughter at bedside speaking to patient in both albanian and haitian. Daughter verbalized patient does not want to use the computer if he has family here. Patient verbalized he has no needs in haitian to this RN.
--- NOTE | 2024-04-13 17:21 | NUR ---
Social Services Director ID # [id number]. Patient reports pain level 5/10 at his incision site. Patient requesting pain medication for this pain. Discussed with patient plan of care and medication admin-pt verbalized his understanding of all.
--- NOTE | 2024-04-13 17:49 | NUR ---
Admin two tabs [place] 5/325mg po for reports of 6/10 abdominal pain. Patient's family at bedside visiting. Patient denies passing flatus this shift.
--- NOTE | 2024-04-13 17:52 | NUR ---
Patient ambulated in hallway, tolerated well.
[2024-04-13 18:16] VITALS: BP 127/87
--- NOTE | 2024-04-13 18:16 | NUR ---
DR. MEEK NOTIFIED OF ABDOMEN STILL MODERATELY DISTENDED WITH ACTIVE BOWEL TONES, NO FLATUS. PT AMBULATES FREQUENTLY. ON DAY 6 NPO. NEW ORDER RECEIVED FOR GUM AND HARD CANDY.
--- NOTE | 2024-04-13 19:36 | NUR ---
REPORT RECIEVED FROM DAY SHIFT RN. PATIENT RESTING IN BED WITH FAMILY IN ROOM. NO CURRENT NEEDS AT THIS TIME. CALL LIGHT IN REACH.
--- NOTE | 2024-04-13 20:17 | PATH ---
[facility] [address], [place] [address] Signed SPECIMEN(S): A APPENDIX SPECIMEN SOURCE: A. APPENDIX CLINICAL HISTORY: Acute ruptured appendix with fecalith. FINAL PATHOLOGIC DIAGNOSIS: Appendix, appendectomy: - Acute suppurative appendicitis with periappendicitis and serositis. - Extensive mucosal necrosis. DajuanVR:demetria MICROSCOPIC EXAMINATION: Histologic sections of all submitted blocks are examined by light microscopy. These findings, together with the gross examination, support the pathologic diagnosis. GROSS DESCRIPTION: The specimen, labeled and designated "Rouse Gallegos, F," and designated on the requisition "appendix," is received in formalin and consists of: Specimen: Appendix with mesoappendix. Dimensions: 6.9 x 1.2 cm. Serosa: Dusky red with areas of fletcher-white softening. Defect: Not grossly identified. Inking: Staple line is inked blue. Mucosa: Dusky red. Fecalith: One brown-fletcher firm oval fecalith that is 1.9 cm in greatest dimension. Additional: Areas of a transmural dusky red discoloration. Interventional Radiologist sections are submitted in (A1). FB (under the direct supervision of a pathologist) The Gross Description was prepared using a voice recognition system. The report was reviewed for accuracy; however, sound-alike word errors, addition and/or deletions may occur. If there is any question about this report, please contact Client Services. ADDITIONAL NOTES: Immunohistochemical and/or in situ hybridization studies if performed in this case included appropriate positive controls that reacted as expected. This PATIENT NAME: SHANNAN FRAGA PATHOLOGY DATE OF : 79 REPORT #: [id number] PHYSICIAN: POPEYE TAYLOR PCP: PORTER VELASCO DO REPORT IS CONFIDENTIAL AND NOT TO BE RELEASED WITHOUT AUTHORIZATION [facility] [address], [place] [address] Signed test was developed and its performance characteristics determined by [facility]. It has not been cleared or approved by the U.S. Food and Drug Administration. The FDA has determined that such clearance or approval is not necessary. This test is used for clinical purposes. It should not be regarded as investigational or for research. [facility] is certified under the Clinical Laboratory Improvement Amendments of 1988 (CLIA) as qualified to perform high complexity clinical laboratory testing. PERFORMING LABORATORY: Technical component was performed by [facility], [address] [place] [id number] (CLIA# [id number]). Professional interpretation was performed by [facility] - [address] [address] (CLIA#: [id number]). Diagnostician: Eugene Christensen MD Pathologist Electronically Signed 04/13/2024 Copies: ~ PATIENT NAME: SHANNAN FRAGA PATHOLOGY DATE OF : 79 REPORT #: [id number] PHYSICIAN: POPEYE TAYLOR PCP: PORTER VELASCO DO REPORT IS CONFIDENTIAL AND NOT TO BE RELEASED WITHOUT AUTHORIZATION
--- NOTE | 2024-04-13 21:20 | NUR ---
PATIENT RESTING IN BED. PATIENT REFUSED TREANSLATOR SERVICE. PATIENT EDUCATED TO TELL THIS RN IF HE CHANGES MIND AND WANTS TO USE IT. VS AND I&Os OBTAINED AND RECORDED. PATIENT REPORTS 6/10 ABD PAIN, PRN PAIN MEDICATION ADMINISTERED PER PATIENT REQUEST WITH SMALL SIP OF WATER. SCHEDULD ABX INFUSING PER ORDER. IV FLUSHES WNL. PATIENT REFUSING SCDs. PATIENT EDUCATED ON SCDs. FRESH ICE PACK PROVIDED FOR ABD. ASSESSMENT COMPLETE. MIDLINE INCISION AND TABLES INTACT. MINIMAL REDNESS NOTED AROUND INCISION SITE. PATIENT HAS NO FURTHER NEEDS. IN ROOM. CALL LIGHT IN REACH.
[2024-04-13 21:23] VITALS: BP 130/90
--- NOTE | 2024-04-13 22:47 | NUR ---
PATIENT RESTING IN BED WITH EYES CLOSED. RESPIRATIONS EVEN AND UNLABORED. CALL LIGHT IN REACH.
[2024-04-14] VITALS (7 sets, daily range): BP systolic 112–123; BP diastolic 75–81
--- NOTE | 2024-04-14 00:05 | NUR ---
CALL LIGHT ANSWERED. PATIENT REFUSING THE USE OF TELEGRAPH MECHANIC SERVICE. PATIENT REPORTS 6/10 ABD PAIN. PATIENT REFUSING IV PAIN MEDICATION & TYLENOL. PATIENT WANTS TO WAIT UNTIL PO NORCO AVAILABLE. NO FURTHER NEEDS. CALL LIGHT IN REACH.
--- NOTE | 2024-04-14 01:29 | NUR ---
PATIENT RESTING IN CHAIR. PATIENT REPORTS 6/10 ABD PAIN. PRN PAIN MEDICATION ADMINISTERED PER PATIENT REQUEST. NO FURTHER NEEDS. CALL LIGHT IN REACH.
--- NOTE | 2024-04-14 03:04 | NUR ---
PATIENT RESTING IN CHAIR WITH EYES CLOSED. RESPIRATIONS EVEN AND UNLABORED. CALL LIGHT IN REACH.
--- NOTE | 2024-04-14 04:58 | NUR ---
PATIENT RESTING IN CHAIR WITH EYES CLOSED. RESPIRATIONS EVEN AND UNLABORED. CALL LIGHT IN REACH.
--- NOTE | 2024-04-14 06:05 | NUR ---
PATIENT RESTING IN CHAIR. AWAKENS EASILY. VS AND I&Os OBTAINED AND RECORDED. NEW BAG IV FLUID AND ABX INFUSING PER ORDER. PATIENT REPORTS NO PAIN AT THIS TIME. PATIENT DENIES NEEDS AT THIS TIME. CALL LIGHT IN REACH. ASSESSMENT COMPLETE. MIDLINE ABD INCISION CLEAN AND DRY. SMALL AMOUNT OF REDNESS OUTLINING THE INSICION SITE. NO FURTHER NEEDS. CALL LIGHT IN REACH.
--- NOTE | 2024-04-14 07:00 | NUR ---
REPORT RECIEVED FROM ERYN PETERSON. PT UP USING RESTROOM. PT DENIES ANY NEEDS AT THIS TIME. IN ROOM. CALL LIGHT IN REACH.
--- NOTE | 2024-04-14 07:20 | NUR ---
PT AMBULATING [place]. NO NEEDS REPORTED OR IDENTIFIED.
--- NOTE | 2024-04-14 08:06 | NUR ---
PT REQUESTED TO TAKE A SHOWER THIS MORNING. CONRADO TOLD PT THAT SHE WOULD CHECK WITH HIS NURSE TO SEE WHEN HIS FLUIDS WERE DONE/IF WE COULD STOP HIS FLUIDS SO THAT HE COULD SHOWER WITHOUT THE IV PUMP. IV PUMP IS BEAPING AND THE SCREEN SAYS "WARNING REPLACE BATTER". CONRADO PUT IN A WORK ORDER REWUEST AND THE PRINTED SHEET IS POSTED OUTSIDE THE PT ROOM ON HIS DOOR.
--- NOTE | 2024-04-14 10:22 | NUR ---
PT REFUSES SALES AND DISTRIBUTION CLERK WHEN OFFERED. PT STATES "I CAN UNDERSTAND." IN TO ADMINSIER MEDICATION, SEE MAR. PT REPORTING PAIN 4/10 TO ABD INCISION SITE. PRN PAIN MEDICAITON ADMINISTERED, SEE MAR. ASSESSMENT COMPLETE. LUNG SOUNDS CLEAR. BOWEL TONES ACTIVE. ABD DISTENTION NOTED, TENDER WITH PALAPTION. MIDLINE INCISION OPEN TO AIR, EDGES WELL APPROXIMATED. SMALL AMOUNT OF REDNESS AROUND INCISION SITE NOTED, NOT WARM TO TOUCH. PT DENIES NAUSEA AT THIS TIME. PT DENIES NUMBNESS OR TINGLING AT THIS TIME. PT DENIES ANY FLATUS. PT STATES "I VOIDED A COUPLE TIMES THIS MORNING AND I HAD A LITTLE BM." UNWITNESSED VOIDS OR BM. IV FLUSHES WNL. PT REQUESTING TO SHOWER. PT SL FOR SHOWER. CONRADO BRIONES IN TO ASSIST PT WITH SHOWER. PT DENIES ANY OTHER NEEDS FROM THIS RN. IN ROOM.
--- NOTE | 2024-04-14 10:25 | NUR ---
INCLUSION TEACHER WRAPPED PT IV SITE AND SET UP PT FOR HIS SHOWER. PT IS INDEPENDENT INT HE SHOWER AND NEEDS NO ASSISTANCE.
--- NOTE | 2024-04-14 11:00 | NUR ---
Spoke with pts . Pt is in the shower. She states pt cont. with bloating and not passing gas. Per he cannot dc yet. She denies needs.
--- NOTE | 2024-04-14 11:28 | NUR ---
pt out of shower and ambulating the hallway with family member
--- NOTE | 2024-04-14 11:42 | NUR ---
PT AMBULATING [place] WITH .
--- NOTE | 2024-04-14 11:42 | NUR ---
CONNECTED WITH PT WHILE AMBULATING IN HALLWAY. LISTENED EMPATHETICALLY PT RELAYED INFORMATION FROM CARE TEAM. PT IN OVERALL GOOD SPIRITS, EXHIBITED STRONG RELATIONAL RESOURCES. PROVIDED SUPPORTIVE PRESENCE, PRAYER.
--- NOTE | 2024-04-14 12:48 | NUR ---
PT AMBULATING [place]. PT REPORTING PAIN 2/10 TO ABD. PT DENIES ANY NEEDS AT THIS TIME.
--- NOTE | 2024-04-14 13:19 | NUR ---
PT GIVEN CUP OF ICECHIPS
--- NOTE | 2024-04-14 13:30 | NUR ---
IN TO ROUND ON PT. PT SITTING UP ON COUCH AND RESPONDS WHEN ADDRESSED. PT REPORTING PAIN 2/10 TO ABD. PT DENIES ANY PRN PAIN MEDICAITON WHEN OFFERED. OFFERED ICE PACK, PT ACCEPTS. ICE PACK PROVIDED. ICE CHIPS PROVIDED. HARD CANDY PROVIDED PER PT REQUEST. ASSESSMENT COMPLETE. BOWEL TONES ACTIVE. ABD DISTENTION NOTED. PT DENIES TENDERNESS WITH PALPATION. PT DENIES PASSING ANY FLATUS. MIDLINE INCISION WITH JULIANNE OPEN TO AIR, EDGES WELL APPROXIMATED. NO DRAINAGE NOTED. SMALL AMOUNT OF REDNESS AROUND INCISION SITE NOTED, NOT WARM TO TOUCH. PT AMBULATES FROM COUCH TO RECLINER. IV FLUIDS RESUMED. IV FLUSHES WNL. PT DENIES ANY OTHER NEEDS AT THIS TIME. CALL LIGHT IN REACH. IN ROOM.
--- NOTE | 2024-04-14 16:10 | NUR ---
PATIENT SITTING UP IN CHAIR AT THIS TIME. VISITOR IN ROOM. CALL LIGHT IN REACH. NO NEEDS AT THIS TIME.
--- NOTE | 2024-04-14 17:36 | NUR ---
PT AMBULATING [place]. NO NEEDS FROM THIS RN.
--- NOTE | 2024-04-14 19:18 | NUR ---
REPORT RECEIVED FROM DAY SHIFT RN. PATIENT RESTING ON COUCH WITH FAMILY IN ROOM. PATIENT REPORTS 5/10 ABD PAIN. PRN PAIN MEDICATION ADMINISTERED. NO FURTHER NEEDS. CALL LIGHT IN REACH.
--- NOTE | 2024-04-14 22:08 | NUR ---
PATIENT RESTING IN BED. DATABASE MARKETING MANAGER [id number] USED. VS AND I&Os OBTAINED AND RECORDED. PATIENT REPORTS 2/10 PAIN AT THIS TIME, BUT REPORTS HE WILL CALL WHEN HE IS READY FOR PAIN MEDICATION. PATIENT REPORTS HE DID NOT HAVE A BM TODAY, AND NO GAS. PATIENT ABD INCISION SITE HAS REDNESS NOTED. BOWEL TONES ACTIVE. PATIENT STATES HE "COULD FEEL MOVING IN STOMACH WHEN SITTING IN CHAIR". PATIENT ABD TENDER TO TOUCH. IV FLUSHES WNL. IV ABX INFUSING PER ORDER. FRESH ICE PACK AND ICE CHIPS PROVIDED. PATIENT HAS NO FURTHER NEEDS. CALL LIGHT IN REACH.
--- NOTE | 2024-04-14 23:58 | NUR ---
PATIENT RESTING IN BED ON BACK WITH EYES CLOSED. RESPIRATIONS EVEN AND UNLABORED. CALL LIGHT IN REACH.
[2024-04-15] VITALS (8 sets, daily range): BP systolic 113–125; BP diastolic 78–89
--- NOTE | 2024-04-15 02:05 | NUR ---
CALL LIGHT ANSWERED. IV PUMP ALARMING. PATIENT REPORTS 05/12 ABD PAIN. PRN PAIN MEDICATION ADMINSITERED. NO FURTHER NEEDS. CALL LIGHT IN REACH.
--- NOTE | 2024-04-15 04:28 | NUR ---
PATIENT RESTING IN CHAIR WITH EYES CLOSED. RESPIRATIONS EVEN AND UNLABORED. CALL LIGHT IN REACH.
--- NOTE | 2024-04-15 05:48 | NUR ---
PATIENT RESTING IN CHAIR. AWAKENS EASILY. PATIENT REFUSING TO USE TRANSLATER AT THIS TIME. VS AND I&Os OBTAINED AND RECORDED. PATIENT DENIES PAIN. PATIENT REPORTS ABD BEING NON TENDER. BOWEL TONES ACTIVE. ICE PACK PROVIDED. NEW BAG IV ABX INFUSING PER ORDER. PATIENT HAS NO FURTHER NEEDS. CALL LIGHT IN REACH.
--- NOTE | 2024-04-15 06:48 | NUR ---
NEW DIET ORDER PLACED BY . FRESH WATER AND JUICE PROVIDED TO PATIENT. THIS RN EDUCATED PATIENT TO DRINK SLOW AND NOT OVER DO IT. PATIENT VERBALIZED UNDERSTANDING. NO FURTHER NEEDS. CALL LIGHT IN REACH.
--- NOTE | 2024-04-15 07:44 | NUR ---
RECIEVED REPORT FROM NURSE AT 0720. PT IS CURRENTLY SITTING UP IN CHAIR WITH ICEPACK OVER INCISION. FAMILY MEMBER IN ROOM. PT HAS NO REQUESTS AT THIS TIME. INCISION SHOWS NO SIGHNS OF LEAKAGE. CALL LIGHT WITHIN REACH
--- NOTE | 2024-04-15 07:57 | NUR ---
Board has been updated and call light has been placed within reach. No request from poatient or
--- NOTE | 2024-04-15 10:00 | NUR ---
pt is currently walking the hals with . went around the unit twice.
--- NOTE | 2024-04-15 11:53 | NUR ---
pt recieved upon request fresh ice for his ice pack as well ad jello and sprite. pt states that he passed gas twice after eating jello and apple juice. no other cares needed or requested at thi time. call light within reach
--- NOTE | 2024-04-15 11:58 | NUR ---
pt is currently ambulating the unit.
--- NOTE | 2024-04-15 12:17 | NUR ---
Patient reported having gas, nurse has been notified.
--- NOTE | 2024-04-15 13:00 | NUR ---
Pt ambulating in the butler. Denies needs.
--- NOTE | 2024-04-15 13:18 | NUR ---
pt in room with family and resting. even and unlabored breathing noted. no cares needed at this time call light within reach
--- NOTE | 2024-04-15 14:25 | NUR ---
UR CONCURRENT REVIEW: [facility] – [place]- CRITERIA FOR DC NOT MET. VARIANCE COMPLETED. [facility] INPATIENT 04/12/24 @ 0234 CLINICALS SENT FOR REVIEW, AWAITING AUTH DISCHARGE TO HOME WHEN STABLE 04/18/24
--- NOTE | 2024-04-15 14:52 | NUR ---
PT UP AND WALKING THE [place] WITH . NO CONCERNS
--- NOTE | 2024-04-15 15:06 | NUR ---
PT STATES THAT PAIN LEVEL IS AT A 4 AND REQUESTED TYLENOL. TYLENOL PRN GIVEN WELL FRESH NEW ICEPACK FOR INCISION. ALSO PT STATES THAT HE PASSED GAS 6 TIMES ADDING TO HIS FIRST TWO THAT HE DID THIS MORNING NO OTHER CARES NEEDED OR REQUESTED AT THIS TIME CALL LIGHT WITHIN REACH
--- NOTE | 2024-04-15 16:54 | NUR ---
pt lisa removed per dr orders. 7 lisa were removed. no leakage incision looks very light pink no signs of infection or irritation. pt pain level is at 2. no complaints or concerns. call light within reach
--- NOTE | 2024-04-15 18:45 | NUR ---
PATIENT WALKED A TOTAL OF SIX LAPS AROUND MED SURG. TODAY.
--- NOTE | 2024-04-15 18:49 | NUR ---
PATIENT HAS FAMILY VISITING HIM. ASKED HIM IF HE WOULD LIKE TO TAKE A SHOWER TODAY AND HE SAID HE TOOK ONE YESTERDAY.
--- NOTE | 2024-04-15 19:25 | NUR ---
REPORT RECEIVED FROM DAY SHIFT RN. PATIENT IN BATHROOM. AMBULATING WELL, DENIES ANY PAIN AT THIS TIME. IVF INFUSING WITH NO ISSUES OR CONCERNS. PATIENT CONFIRMS HE IS PASSING GAS. NO FURTHER NEEDS AT THIS TIME. CALL LIGHT WITHIN REACH.
--- NOTE | 2024-04-15 19:45 | NUR ---
PATIENT AMBULATING IN HALLWAYS [facility] . TOLLERATING WELL.
--- NOTE | 2024-04-15 20:57 | NUR ---
PLUG PASTER OBTAINED VITALS AND I&O. URINAL EMPTIED. PT ASKED FOR TYLENOL. RN NOTIFIED. PT STATES NO FURTHER NEEDS AT THIS TIME. CALL LIGHT WITHIN REACH.
--- NOTE | 2024-04-15 21:30 | NUR ---
PATIENT RESTING IN BED WITH AT BEDSIDE. IVF INFUSING WITH NO ISSUES OR CONCERNS. IV SITE PATENT FLUSHES WELL. LUNGS CTA. PRN TYLENOL NOT AVAILABLE FOR ADMINSTRATION AT THIS TIME. PATIENT NOTIFIED AND OFFERED ALTERNATIVE PRN MEDICATIONS. DECLINED ANY OTHER PRNS. WOULD LIKE TO WAIT AND TAKE TYLENOL WHEN IT IS AVAILABLE. BOWEL TONES ACITVE X 4 QUADRANTS. MIDLINE INCISION WELL APPROXIMATED, NO DRAINAGE NOTED, MILD ERYTHERMA AROUND INCISION NO WARMTH OR SWELLING NOTED. DENIES NAUSEA OR VOMITING.
--- NOTE | 2024-04-15 22:47 | NUR ---
IV ABX HUNG. NEW BAG OF IVF HUNG WITH NEW TUBBING. PRN TYLENOL GIVEN FOR PAIN. PATIENT ASKED FOR ICE PACK. ICE GIVEN. NO FURTHER NEEDS AT THIS TIME. CALL LIGHT WITHIN REACH.
--- NOTE | 2024-04-16 00:24 | NUR ---
PATIENT RESTINGING IN BED WITH EYES CLOSED. RESPIRATIONS EVEN AND UNLABORED. IVF INFUSING WITH NO ISSUES OR CONCERNS. CALL LIGHT WITHIN REACH.
--- NOTE | 2024-04-16 02:00 | NUR ---
PATIENT AWAKE AND AMBULATING TO BATHROOM. SMALL SMEER LIKE BM. STOOL BROWN IN COLOR, QUARTER SIZED LIQUID STOOL. PT REPORTS FEELING CRAMPING IN HIS LOWER ABDOMEN. DENIED WANTING ANY PAIN MEDICATIONS, HOT PACKS OR ICE PACKS. PATIENT SITTING IN RECLINER AT THIS TIME. CALL LIGHT WITHIN REACH.
--- NOTE | 2024-04-16 04:02 | NUR ---
PATIENT RESTING IN RECLINER WITH EYES CLOSED. RESPIRATIONS EVEN AND UNLABORED. IVF INFUSING WITH NO ISSUES OR CONCERNS. CALL LIGHT WITHIN REACH.
[2024-04-16 05:32] VITALS: BP 107/75
--- NOTE | 2024-04-16 05:35 | NUR ---
TRAFFIC CONTROL OFFICER OBTAINED VITALS AND I&O. PT URINAL EMPTIED. PT STATES NO FURTHER NEEDS AT THIS TIME. CALL LIGHT PLACED WITHIN REACH.
[2024-04-16 05:49] LABS: BASOPHILS 0.4 % (0-2); EOSINOPHILS 0.3 % (0-6); HEMATOCRIT 36.2 % (35.0-50.0); HEMOGLOBIN 12.1 g/dL (12.0-18.0); LYMPHOCYTES 8.9 % (24-44); MCHC 33.5 g/dl (30-36); MCV 98.4 fl (81-99); MONOCYTES 6.5 % (0-12); NEUTROPHILS 83.9 % (39-80); PLATELET COUNT 412 K/uL (140-440); RBC 3.68 M/ul (4.3-5.7); RDW 12.3 (10.5-15.0)
[2024-04-16 06:04] LABS: ANION GAP 8.7 (7-21); BUN/CREATININE RATIO 9.52 (6.0-28.6); CALCIUM 7.8 mg/dL (8.5-10.1); CREATININE, SERUM 0.63 mg/dL (0.70-1.30); PHOSPHORUS, INORGANIC 2.8 mg/dL (2.5-4.9); POTASSIUM 3.7 mmol/L (3.5-5.1)
--- NOTE | 2024-04-16 06:13 | NUR ---
PATIENT AWAKE IN RECLINER. AM IV ABX HUNG. IV SITE PATENT. PATIENT STATED, "I'M DOING OKAY, I HAVE A LITTLE BIT OF PAIN BUT IT'S NOT BAD." PATIENT REFUSED PRN MEDICATION AT THIS TIME. ACTIVE BOWEL TONES X 4 QUADRANTS. PATIENT CONFIRMS HE CONTINUES TO PASS GAS. DENIES ANY NAUSEA AT THIS TIME. NO FURTHER NEEDS AT THIS TIME. CALL LIGHT WITHIN REACH.
--- NOTE | 2024-04-16 07:29 | NUR ---
recieved report at 0702 from nurse. pt is currently in room up in chair with . pt states that he had 2 BOWEL MOVEMENTS BUT THEY WERE VERY SMALL. PATIENT IS REQUESTING FOOD SINCE HE IS PASSING GAS AND HAVING BM'S. WILL NOTIFY DR ANSELMO MAHARAJ WITHIN REACH
[2024-04-16] MEDS ORDERED: POLYETHYLENE GLYCOL 3350 1 PACKET PO SCH (10:36)
[2024-04-16 10:54] VITALS: BP 124/86
--- NOTE | 2024-04-16 11:00 | NUR ---
Pt walked in the butler. No needs.
--- NOTE | 2024-04-16 11:07 | NUR ---
PT IS CURRENTLY IN BED RESTING. NO CARES NEEDED OR REQUESTED AT THIS TIME CALL LIGHT WITHIN REACH
--- NOTE | 2024-04-16 14:58 | NUR ---
VISITED DURING SPIRITUAL CARE ROUNDS. FAMILY IN ROOM WITH PT. PROVIDED SUPPORTIVE PRESENCE, HOSPITALITY, PRAYER. FAMILY AND PT EXPRESSED GRATITUDE.
[2024-04-16 15:06] VITALS: BP 113/78
--- NOTE | 2024-04-16 16:39 | NUR ---
CHECKED PTS TEMP AND IT WAS AT 98.9 FROM THE 99.2 PREVIOUSLY RECORDED. P-T IS STATING THAT HE HAS PAIN LEVEL BETWEEN 0 AND 2. NO OTHER CARES NEEDED OR REQUESTED AT THIS TIME
[2024-04-16 18:30] VITALS: BP 124/77
--- NOTE | 2024-04-16 18:54 | NUR ---
Pt given a hot pack to apply to his low back for comfort. Hot pack placed over the outside of his gown. Pt instructed to remove the hot pad after 20 minutes and to remove it if it feels too hot. Pt verbalized understanding. Primary RN, Piotr, notified.
--- NOTE | 2024-04-16 19:15 | NUR ---
REPORT RECIEVED FROM NADJA CERNA. pt RESTING IN THE BED. BOARD UPDATED. pt DENIES ANY NEEDS AT THIS TIME. CALL LIGHT WITHIN REACH.
--- NOTE | 2024-04-16 20:45 | NUR ---
ASSESSMENT AND VITAL SIGNS DONE. MIDLINE INCISION EDGES WELL APPROXIMATED, CDI. pt STATE PAIN IS AT A 2/10 BUT DENIES THE NEED FOR PAIN MEDICATION. NO OTHER NEEDS AT THIS TIME. SCDS ON. CALL LIGHT WITHIN REACH.
[2024-04-16 20:52] VITALS: BP 116/81
[2024-04-16] MEDS ORDERED: SENNOSIDES/DOCUSATE 1 EA TAB PO SCH (21:00)
--- NOTE | 2024-04-17 00:20 | NUR ---
pt RESTING IN THE BED WITH EYES CLOSED. RR EVEN AND UNLABORED. CALL LIGHT WITHIN REACH.
--- NOTE | 2024-04-17 02:42 | NUR ---
pt RESTING ON THE COUCH WITH EYES CLOSED. RR EVEN AND UNLABORED. CALL LIGHT WITHIN REACH.
--- NOTE | 2024-04-17 04:16 | NUR ---
pt RESTING IN THE BED WITH EYES CLOSED. RR EVEN AND UNLABORED. CALL LIGHT WITHIN REACH.
[2024-04-17 05:30] VITALS: BP 116/80
--- NOTE | 2024-04-17 05:35 | NUR ---
FIRE REGULATOR OBTAINED VITALS AND I&O. URINAL EMPTIED. PT STATES NO FURTHER NEEDS AT THIS TIME. CALL LIGHT WITHIN REACH.
--- NOTE | 2024-04-17 05:40 | NUR ---
pt RESTING IN THE BED. pt C/O OF 3/10 PAIN. PRN PAIN MEDICATION ADMINISTERED. WATER REFRESHED. pt DENIES ANY OTHER NEEDS AT THIS TIME. CALL LIGHT WITHIN REACH.
--- NOTE | 2024-04-17 07:22 | NUR ---
recieved pt report at 0705 from manufacturing shift supervisor nurse. pt is in room resting. unlabored and even breathing noted .no concerns at this time call light within reach.
--- NOTE | 2024-04-17 07:50 | NUR ---
DID HRLY ROUNDING ON PT. UPDATED BOARD ASKED PT IF HE NEEDED ANYTHING HE DENIED. ASKED FOR A WARM WATER AND CALL LIGHT IS WITHIN REACH.
--- NOTE | 2024-04-17 08:23 | NUR ---
pt requested to shower. arm covered [facility] ziploc bag for iv site protection. patient is currently taking a shower with his wifes assistance. no other cares needed at this time. call light within reach
[2024-04-17 09:50] VITALS: BP 118/75
[2024-04-17] MEDS ORDERED: TYLENOL EXTRA500 MG PO (10:37)
[2024-04-17] MEDS ORDERED: METRONIDAZOLE250 MG PO (10:38)
== END 2024-04-17 12:20 | disposition home or self-care (01) | DRG 399 ==
LOC: ED 09:24 → CCU 11:09 → MS 11:09
PROVIDERS: Emergency Medicine; ADMIT Colon & Rectal Surgery; ATTEND Colon & Rectal Surgery
PROC: 0DTJ0ZZ Resection of Appendix, Open Approach (ICD-10-PCS; principal; 2024-04-07 15:45)
DX: K35.33 Acute appendicitis with perforation, localized peritonitis, and gangrene, with abscess (principal); K38.1 Appendicular concretions
CPT/HCPCS: 00840; 36415; 71045; 74177; 76942; 80048; 80053; 81003; 83605; 83690; 83735; 84100; 85025; 87040; 88304; 93005; 93010; A9270; C9113; J0131; J0692; J1100; J1170; J1650; J1885; J2001; J2405; J2543; J2704; J2795; J3010; J3475; J3480; J3490; J7030; J7060; J7121; Q9967

== ENCOUNTER 2024-05-07 16:09 | Inpatient (IN) | payer OTHER ==
[~2024-05-07] VITALS: Ht 182.9 cm; Wt 81.6 kg
[~2024-05-07 16:09] MED LIST changes: +METRONIDAZOLE250 MG PO; +TYLENOL EXTRA500 MG PO
--- OUTSIDE RECORDS SUMMARY | 2024-05-07 16:16 | XMS ---
PreManage Notification: SHANNAN FRAGA Security Retail Presentation Specialist Events No recent Security Events currently on file CRITERIA MET - [facility] - 2 Visits in 30 Days CARE PROVIDERS There are no care providers on record at this time. Ismael has no Care Guidelines for this patient. [facility] MO.) [facility] NOTE: Visits indicate total known visits. ED/C VISIT TRACKING (12 MO.) [facility]07[facility] 16[facility] Emergency COMPLAINT: - WEAKNESS 04/07/2024 09:25 [facility] TYPE: Emergency COMPLAINT: - ABDOMINAL PAIN INPATIENT VISIT TRACKING (12 MO.) 04/07/2024 11:09 [facility] TYPE: Medical Surgical COMPLAINT: - RUPTURED APPENDICITIS DIAGNOSES: - Acute appendicitis with perforation, localized peritonitis, and gangrene, with abscess - Acute appendicitis with perforation, localized peritonitis, and gangrene, with abscess - Acute appendicitis with perforation, localized peritonitis, and gangrene, without abscess - Appendicular concretions - Appendicular concretions [email or web address]
[2024-05-07 16:45] LABS: BASOPHILS 0.3 % (0-2); EOSINOPHILS 0.3 % (0-6); HEMATOCRIT 39.5 % (35.0-50.0); HEMOGLOBIN 13.8 g/dL (12.0-18.0); LYMPHOCYTES 19.6 % (24-44); MCH 33.6 (27-36); MCV 95.8 fl (81-99); MONOCYTES 8.3 % (0-12); NEUTROPHILS 71.5 % (39-80); PLATELET COUNT 243 K/uL (140-440); RBC 4.12 M/ul (4.3-5.7); RDW 12.3 (10.5-15.0)
[2024-05-07] MEDS ORDERED: SODIUM CHLORIDE 0.9% 1,000 ML IV ONE ×2 (16:45→18:45)
[2024-05-07 17:01] LABS: ALBUMIN/GLOBULIN RATIO 0.65 (1.1-2.4); ANION GAP 12.5 (7-21); BILIRUBIN, TOTAL 0.7 ng/dL (0.2-1.0); BUN/CREATININE RATIO 7.79 (6.0-28.6); CALCIUM 8.2 mg/dL (8.5-10.1); CREATININE, SERUM 0.77 mg/dL (0.70-1.30); POTASSIUM 3.5 mmol/L (3.5-5.1); PROTEIN, TOTAL 7.6 g/dL (6.4-8.2)
[2024-05-07 17:49] LABS: BILIRUBIN, URINE NEGATIVE (negative); BLOOD/HGB, URINE NEGATIVE (Negative); KETONE, URINE NEGATIVE (Negative); LEUK ESTERASE, URINE NEGATIVE (negative); NITRITE, URINE NEGATIVE (negative); PH, URINE 7.5 (5-7)
[2024-05-07 18:02] LABS: INFLUENZA B NAA NEGATIVE (NEGATIVE); RESPIRATORY SYNCYTIAL VIR NAA NEGATIVE (NEGATIVE)
[2024-05-07] MEDS ORDERED: DEXTROSE 5% 100 ML IV ONE (18:42)
[2024-05-07] MEDS ORDERED: PIPERACILLIN/TAZOBACTAM 3.375 GM in DEXTROSE 5% 100 ML IV ONE (18:45)
--- NOTE | 2024-05-07 19:52 | NUR ---
REPORT RECEIVED FROM ED RN. PATIENT TRANSFERED TO WHEELCHAIR IN ED ROOM WITH 1 PA STAND BY ASSIST. TOLELRATED WELL. ON UNIT PATIENT ABLE TO SELF TRANSFER TO BED. VSS. WHEN ASKED ABOUT PAIN PATIENT REPORTS HE HAS PAIN BUT DOESN'T WANT ANYTHING FOR IT AT THIS TIME. POWDER GUARD IN ROOM WITH PATIENT. FAMILY AT BEDSIDE. CALL LIGHT WITHIN REACH.
--- NOTE | 2024-05-07 19:52 | NUR ---
pt ARRIVED TO MS FLOOR FROM ED WITH PRIMARY RN JAVID. pt ABLE TO STAND AND EASILY TRANSFERRED SELF OVER TO BED, ADMISSION COMPLETED AND pt ORINETED TO POC AND ROOM. QUIESTIONS ANSWERED. PER PRIMARY RN JAVID, ADMITTING MD TO COME TO FLOOR, ASSESS pt, AND PLACE ADDITIONAL ORDERS-pt AND SON SHANNAN ROMERO, BOTH UPDATED. IV ABX COMPLETED, PUMP CLEARED AND IV ISTE SALINE LOCKED-REMAINS WNL. TEMP TRENDING DOWN FROM PREVIOUS, OTHER VSS. pt IN GOOD SPIRITS AND INTERACTIVE WITH STAFF. SON REMAINS AT BEDSIDE. CALL LIGHT IN REACH.
[2024-05-07 19:53] VITALS: BP 120/75
--- NOTE | 2024-05-07 22:35 | NUR ---
PATIENT RESTING IN BED WITH FAMILY AT BEDSIDE. BOWEL TONES ACTIVE X 4 QUADRANTS. LUNG SOUNDS CTA. PATIENT C/O PAIN 3-02/10. DENIES NEED SFOR PAIN MEDICATIONS AT THIS TIME. IV SITE TO RIGHT AC SALINE LOCKED. FLUSHED WITH 10ML NS. SKIN INTACT WITH NO ISSUES OR CONERNS. PATIENT ABLE TO MOVE INDEPENDENTLY IN THE ROOM AT THIS TIME WITH NO ISSUES OR CONCERNS. CALL LIGHT WITHIN REACH.
--- NOTE | 2024-05-07 22:50 | NUR ---
DR CARY IN ROOM ASSESSING pt, MADE AWARE OF ADMITTING TEMP OF 100.3. NO NEW ORDERS RECEIVED AT THIS TIME.
--- NOTE | 2024-05-07 23:30 | NUR ---
pt AMBULATING THE HALLWAY. STEADY ON FEET. MD AT RN STATION AND WORKING ON PLACING ORDERS.
[2024-05-07] MEDS ORDERED: ondansetron HCL 4 MG/2 ML VIAL IV PRN (23:45)
[2024-05-07] MEDS ORDERED: MORPHINE SULFATE 10 MG/ML VIAL IV PRN (23:45)
[2024-05-07] MEDS ORDERED: KETOROLAC TROMETHAMINE 30 MG/ML VIAL IV PRN (23:45)
[2024-05-07] MEDS ORDERED: HYDROmorphone HCL 1 MG/ML SYR IV PRN (23:45)
[2024-05-07] MEDS ORDERED: DEXTROSE 5% - LACTATED RINGERS 1,000 ML IV SCH (23:45)
[2024-05-07] MEDS ORDERED: PROCHLORPERAZINE EDISYLATE 10 MG/2 ML VIAL IV PRN (23:45)
--- NOTE | 2024-05-07 23:49 | NUR ---
DR CARY AT RN STATION AND REVIEWED NEW ORDERS WITH . VERBAL ORDER READ BACK TO MAKE THE TYLENOL BE: 1,000 MG PO TYLENOL Q8H PRN.
[2024-05-08] VITALS (10 sets, daily range): BP systolic 95–107; BP diastolic 51–66
[2024-05-08] MEDS ORDERED: ACETAMINOPHEN 500 MG TAB PO PRN
--- NOTE | 2024-05-08 00:13 | NUR ---
IN ROOM FOR PRIMARY RN TO HANG IV FLUIDS AND GIVE PRN TYLENOL FOR FEVER/4/10 ABD PAIN-SEE EMAR. IV SITE WNL, pt DENIES ADDITIONAL NEEDS OR CONCERNS. CALL LIGHT IN REACH.
[2024-05-08] MEDS ORDERED: PIPERACILLIN/TAZOBACTAM 3.375 GM in DEXTROSE 5% 100 ML IV SCH (02:00)
[2024-05-08] MEDS ORDERED: PIPERACILLIN/TAZOBACTAM 3.375 GM VIAL ONE (02:16)
--- NOTE | 2024-05-08 02:33 | NUR ---
IN ROOM TO COLLECT VS AND I&O'S, BOTH CHARTED AND PRIMARY RN AWARE AND UPDATED. CALL LIGHT IN REACH, PRIMARY RN IN ROOM FOR MED ADMINISTRATION.
--- NOTE | 2024-05-08 03:29 | NUR ---
patient resting in bed. iv abx hung. abd distended patient reports pain however, does not wish to have pain medications at this itme. iv site remains patent with no issues. family at bedside. no further needs at this time. call light within reach.
--- NOTE | 2024-05-08 06:32 | NUR ---
PATIENT RESTING IN BED. IV ABX HUNG. IV SITE WNL. PATIENT REPORTS HE," FEELS BETTER." AFEBRILE AT THIS TIME VSS. URINAL EMPTIED. NO FURTHER NEEDS CALL LIGHT WITHIN REACH.
--- NOTE | 2024-05-08 07:00 | NUR ---
REPORT RECIEVED FROM ERYN HUA. PT LAYING IN BED SEMI-FOWLERS. PT RESPONDS WHEN ADDRESSED. IV ABX COMPLETE. IV FLUIDS INFUSING WNL. PT DENIES ANY NEEDS AT THIS TIME WHEN ASKED. CALL LIGHT IN REACH.
[2024-05-08] MEDS ORDERED: FAMOTIDINE 20 MG/ 2 ML VIAL IV SCH (09:00)
[2024-05-08] MEDS ORDERED: HEParin SOD (PORCINE) 5,000 UNIT/0.5 ML SYR SUB-Q SCH (09:00)
--- NOTE | 2024-05-08 09:35 | NUR ---
IN TO ADMINISTER MEDICAITONS, SEE MAR. PT LAYING IN BED SEMI-FOWLERS. PT RESPONDS WHEN ADDRESSED. PT REPORTING HEADACH 02/10. OFFERED PRN TYLENOL, PT REFUSES AT THIS TIME. COOL CLOTH PROVIDED FOR PTs FOREHEAD. OFFERED TRANSLATION SERVICES (X3), PT REFUSES. PTs DAUGHTER IN ROOM AND TRANSLATES. URINAL AT BEDSIDE EMPTIED. IV FLUSHES WNL AND IS INFUSING WNL. PT REQUESTING TO GO TO RESTROOM. PT AMBULATES WITH STEADY GAIT TO RESTROOM. PT REQUESTING TO EAT BREAKFAST. INFORMED PT AND PTs DAUGHTER TO CALL WHEN PT IS DONE EATING. PT AND PTs DAUGHTER VERBALIZE UNDERSTANDING. NO OTHER NEEDS FROM THIS RN. CALL LIGHT IN REACH.
--- NOTE | 2024-05-08 10:48 | NUR ---
IN WITH REINFORCING IRON WORKER HELPER TO HAVE PT SIGN REINFORCING IRON WORKER HELPER FORM. PTs DAUGHTER AT BEDSIDE. PT AND PTs DAUGHTER VERBALIZE UNDERSTANDING. ASSESSMENT COMPLETE. LUNG SOUNDS CLEAR. BOWEL TONES ACTIVE. ABD TENDER IN RLQ, LLQ AND LUQ WITH PALPATION. PT REPORTS HAVING FLATUS. PT REPORTING LAST BM WAS YESTERDAY (05/07/24). PT DENIES PAIN OTHERWISE. PT REPORTING HEADACHE PAIN GONE. PT DENIES ANY NUMBNESS OR TINGLING TO ANY EXTREMITIES. PEDAL PULSES PALPABLE, STRONG. PT EDUCATED MORE ON IV ABX, PT VERBALIZES UNDERSTANDING. PT DENIES ANY OTHER NEEDS AT THIS TIME. CALL LIGHT IN REACH. DAUGHTER IN ROOM.
--- NOTE | 2024-05-08 10:53 | NUR ---
PT AMBULATING [facility].
--- NOTE | 2024-05-08 11:09 | NUR ---
patient walking laps in hallway independently.
--- NOTE | 2024-05-08 12:36 | NUR ---
PT AMBULATING [facility].
--- NOTE | 2024-05-08 14:16 | NUR ---
IN TO ROUND ON PT. PT SITTING UP IN RECLINER. PT OFFERED MEETING MANAGER, PT REFUSES. IV ABX STARTED, SEE MAR. ASSESSMENT COMPLETE. PT REPORTING PAIN TO ABD /. PT DENIES PRN PAIN MEDICATION WHEN OFFERED. BOWEL TONES ACTIVE. ABD SOFT, TENDER WITH PALPATION. ABD DISTENTION NOTED. PT REPORITING PASSING FLATUS. PT REPORTING HAVING A BM THIS MORNING, NOTED THE BM WAS NOT WITNESSED BY STAFF. PT AND PTs DAUGHTER EDUCATED TO INFORM STAFF OF BM AND THAT STAFF NEEDS TO WITNESS BM. PT AND PTs DAUGHTER VERBALIZE UNDERSTANDING. PT AND PTs DAUGHTER DENY ANY OTHER NEEDS. CALL LIGHT IN REACH.
--- NOTE | 2024-05-08 14:36 | NUR ---
MED REC COMPLETE
--- NOTE | 2024-05-08 16:32 | NUR ---
PT AMBULATING [facility].
--- NOTE | 2024-05-08 17:57 | NUR ---
IN TO ADMINISTER MEDICATION, SEE MAR. PT SITTING UP ON EDGE OF BED AND RESPONDS WHEN ADDRESSED. IV INFUSING WNL AND ABX STARTED WNL. PT DENIES PAIN AT THIS TIME. PT REPORITNG "EYES FEELING HEAVY." PT REQUESTING TEMPERATURE TO BE CHECKED. TEMPERATURE OF 99.4 ORALLY NOTED. COOL CLOTH PROVIDED FOR PTs EYES. PT DENIES ANY OTHER NEEDS AT THIS TIME. CALL LIGHT IN REACH. PTs DAUGHTER IN ROOM, WHO TRANSLATES.
--- NOTE | 2024-05-08 18:31 | NUR ---
IN TO ROUND ON PT. PT REPORTING EYES FEELING BETTER. PT REPORTING PAIN 2/10 TO ABD. PT ALSO REPORTING "CHILLS." PRN TYLENOL ADMINISTERED, SEE MAR. PT TAKES PO MEDICATION WITH NO ISSUES. URINAL EMPTIED. PT DENIES ANY OTHER NEEDS AT THIS TIME. CALL LIGHT IN REACH. PTs DAUGHTER IN ROOM.
--- NOTE | 2024-05-08 18:47 | NUR ---
THIS RN CALLED MD TO UPDATE ON PTs VITALS. MD AWARE. NO NEW ORDERS AT THIS TIME.
--- NOTE | 2024-05-08 19:05 | NUR ---
REPORT RECEIVED FROM DAY RN. PATIENT RESTING IN BED WITH EYES CLOSED. RESPIRATIONS UNLABORED. COOL WASHCLOTH ON HEAD FOR COMFORT. DENIES ANY NEEDS AT THIS TIME. CALL LIGHT WITHIN REACH.
--- NOTE | 2024-05-08 21:32 | NUR ---
PATIENT RESTING IN BED, VSS. URINAL EMPTIED. FRESH ICE WATER GIVEN. HS MEDICATIONS ADMINISTERED. LUNGS CTA, BOWEL TONES ACITVE X 4 QUADRANTS. PATIENT REPORTS HE IS FEELING BETTER THAN HE DID EARILER. AFEBRILE AT THIS TIME. ABD TENDER. PATIENT REPORTS HIS ABD REMAINS SLIGHTLY PAINFUL, HOWEVER HE DOES NOT WANT PAIN MEDICATIONS. IV SITE REMAINS WNL. FLUIDS INFUSING WITH NO ISSUES OR CONCERNS. NO FURTHER NEEDS AT THIS TIME. CALL LIGHT WITHIN REACH.
--- NOTE | 2024-05-08 23:40 | NUR ---
CALL LIGHT ANSWERED. PATIENT REQUESTING MORE ICE WATER. ICE WATER GIVEN. NO FURTHER NEEDS AT THIS TIME.
[2024-05-09] VITALS (8 sets, daily range): BP systolic 93–101; BP diastolic 57–66
--- NOTE | 2024-05-09 02:17 | NUR ---
PATIENT RESTING IN BED. DENIES ANY PAIN AT THIS TIME. ABD CONTINUES TO BE MILDLY DISTENDED. PATIENT 0200 ABX HUNG. URINAL EMPTIED. IV SITE WNL. NO FURTHER NEEDS AT THIS TIME. CALL LIGHT WITHIN REACH.
[2024-05-09 05:17] LABS: EOSINOPHILS 0.4 % (0-6)
[2024-05-09 05:20] LABS: BASOPHILS 0.2 % (0-2); HEMATOCRIT 37.2 % (35.0-50.0); HEMOGLOBIN 12.6 g/dL (12.0-18.0); LYMPHOCYTES 22.5 % (24-44); MCH 32.9 (27-36); MCHC 33.7 g/dl (30-36); MCV 97.5 fl (81-99); MONOCYTES 8.3 % (0-12); NEUTROPHILS 68.6 % (39-80); PLATELET COUNT 220 K/uL (140-440); RBC 3.82 M/ul (4.3-5.7); RDW 11.9 (10.5-15.0)
[2024-05-09 05:26] LABS: ANION GAP 10.5 (7-21); BUN/CREATININE RATIO 2.94 (6.0-28.6); CALCIUM 8.6 mg/dL (8.5-10.1); CREATININE, SERUM 0.68 mg/dL (0.70-1.30); POTASSIUM 3.5 mmol/L (3.5-5.1)
--- NOTE | 2024-05-09 05:28 | NUR ---
PATIENT RESTING IN BED. REPORTS HE IS FEELING, "OKAY." DENIES ANY PAIN AT THIS TIME. ABD SLIGHTLY DISTENDED. BOWEL TONES ACTIVE X 4. AFEBRILE, LUNGS CTA. IV SITE PATENT. IV ABX HUNG. VSS. NO FURTHER NEEDS AT THIS TIME. CALL LIGHT WITHIN REACH.
--- NOTE | 2024-05-09 08:00 | NUR ---
Pt report received from ERYN Tao at 0723 hours. Pt is asleep in bed, on his right side, family member asleep on couch in room, lights off. Pt awakens easily to voice. Denies any needs at this time. Call light in reach.
--- NOTE | 2024-05-09 08:01 | NUR ---
In pt room for IV pump alarm. Flagyl complete. D5 LR running at 125ml/hr on pump A. Urinal emptied of 525ml clear david colored urine. Breakfast tray placed on bedside table at bedside and pt up to toilet. Call light in reach.
--- NOTE | 2024-05-09 10:57 | NUR ---
Pt has been up, ambulating hallways x2 thus far this shift. Pt has no complaints and denies needs. Pt back to chair, ice water refilled. Call light in reach. Pt urinal emptied of 400ml clear david colored urine. Pt states he had a liquid BM this morning before breakfast.
--- NOTE | 2024-05-09 19:34 | NUR ---
Patient alert and oriented x4, no distress. Patient ambulating in hallway at this time.
--- NOTE | 2024-05-09 22:32 | NUR ---
Patient reports his abdominal pain is tolerable. Pt denies nausea, he reports passing flatus, active bowel tones x4 quadrants. Patient afebrile. IV abx started per provider order. Patient denies needs at this time. Fresh water provided. Personal supplies and call light within reach.
[2024-05-10] VITALS (9 sets, daily range): BP systolic 97–105; BP diastolic 61–74
--- NOTE | 2024-05-10 00:28 | NUR ---
REPORT RECEIVED FROM RN. PT RESTING IN BED, EYES CLOSED. RR EVEN, UNLABORED. IV FLUIDS INFUSING PER ORDER. CALL LIGHT IN REACH.
--- NOTE | 2024-05-10 01:43 | NUR ---
PT RESTING IN BED, EYS CLOSED. RR EVEN, UNLABORED. CALL LIGHT IN REACH.
--- NOTE | 2024-05-10 02:12 | NUR ---
SCHEDULED MED PROVIDED. IV SITE WNL. PT RESTING IN BED, EYES CLOSED. RR EVEN, UNLABORED. CALL LIGHT IN REACH.
--- NOTE | 2024-05-10 02:58 | NUR ---
PT RESTING IN BED, EYES CLOSED. RR EVEN, UNLABORED. IV FLUIDS INFUSING. CALL LIGHT IN REACH.
--- NOTE | 2024-05-10 04:00 | NUR ---
PT RESTING IN BED, EYES CLOSED. RR EVEN, UNLABORED. IV FLUIDS INFUSING. CALL LIGHT IN REACH.
--- NOTE | 2024-05-10 06:20 | NUR ---
VS AND I&O COMPLETED. PT DENIES PAIN, STATES HE HAS HAD FLATUS TONIGHT. PT HAS HAD NO NAUSEA TONIGHT. PT STATES NO OTHER NEEDS. CALL LIGHT IN REACH.
--- NOTE | 2024-05-10 06:44 | NUR ---
PT SLEPT WELL THIS SHIFT. PT HAS NOT REQUIRED PAIN MEDS. PT TOLERATED DIET AND IV FLUIDS WELL. PT HAS WALKED THE HALLS NUMEROUS TIMES.
--- NOTE | 2024-05-10 07:00 | NUR ---
REPORT RECEIVED FROM ASSISTANT PROSECUTING ATTORNEY RN REYNALDO. PATIENT IS LYING IN BED AND RESPONDING TO RN. PATIENT STATED NO FURTHER NEEDS AT THIS TIME. CALL LIGHT AND PERSONAL BELONGINGS ARE WITHIN REACH.
--- NOTE | 2024-05-10 08:35 | NUR ---
0900 MEDICATIONS ADMINISTERED PER THE EMAR. FULL ASSESSMENT COMPLETE AND DOCUMENTED IN THE CHART. PATIENT IS INDEPENDENT IN THE ROOM. PAIN IS 1/10 IN THE ABDOMEN AND THE PATIENT IS NOT REQUESTING PAIN MEDICATION AT THIS TIME. IV SITE FLUSHED WITH 20 ML NORMAL SALINE. IV DRESSING IS CLEAN, DRY, AND INTACT. CARDIAC WITH NORMAL S1 AND S2 ON AUSCULTATION. RADIAL PULSES ARE STRONG BILATERALLY. SENSATION INTACT WITH NO COMPLAINTS OF NUMBNESS AND TINGLING. PATIENT IS ALERT AND ORIENTED TIMES FOUR. LUNG SOUNDS ARE CLEAR IN ALL LUNG KUNZ BILATERALLY AND THE PATIENT IS ON ROOM AIR. BOWEL TONES ARE ACTIVE IN ALL FOUR QUADRANTS. MIDLINE ABDOMEN SCAR NOTED. SKIN INTACT WITH NO REDNESS OR BREAKDOWN NOTED. PATIENT WITH HIS AT THE BEDSIDE. PATIENT STATED NO FURTHER NEEDS AT THIS TIME. CALL LIGHT AND PERSONAL BELONGINGS ARE WITHIN REACH.
--- NOTE | 2024-05-10 09:08 | NUR ---
PATIENT IS AMBULATING IN THE HALLWAY INDEPENDENTLY AT THIS TIME.
--- NOTE | 2024-05-10 09:47 | NUR ---
PATIENT UP AMBULATING, VITALS COMPLETE. NEW BAG OF IVF INFUSING. NO OTHER NEEDS AT THIS TIME.
--- NOTE | 2024-05-10 10:06 | NUR ---
PATIENT IS WALKING INDEPENDENTLY ON THE MEDICAL SURGICAL FLOOR AT THIS TIME.
--- NOTE | 2024-05-10 10:30 | NUR ---
Spoke with Carmen and his . Pt cont. to live in [place] with his his . He is active and does not use any DME. Pt returned as he developed abcesses following a ruptured appy. Pt is doing well walking in the butler frequently. They deny any needs to go home. I was able to speak with Dr. Albright and he plans on pt remaining 5-7 days for IV antibiotics.
--- NOTE | 2024-05-10 11:21 | NUR ---
PATIENT IS SITTING UPRIGHT IN THE CHAIR AND LOOKING ON THEIR PHONE. PATIENT IS AT THE BEDSIDE. CALL LIGHT AND PERSONAL BELONGINGS ARE WITHIN REACH.
--- NOTE | 2024-05-10 11:39 | NUR ---
PATIENT WALKED TEN LAPS SO FAR THIS MORNING AROUND MED SURG.
--- NOTE | 2024-05-10 11:42 | NUR ---
ASKED PATIENT IF HE WOULD LIKE TO TAKE A SHOWER TODAY AND HE SAID HE TOOK ONE YESTERDAY. PATIENT IS INDEPENDENT.
--- NOTE | 2024-05-10 12:17 | NUR ---
PATIENT IV FLUIDS DISCONTINUED. PATIENT SPEAKING WITH THE DOCTOR AT THIS TIME. PATIENT IS NOW EATING LUNCH. PATIENT STATED NO FURTHER NEEDS AT THIS TIME. CALL LIGHT AND PERSONAL BELONGINGS ARE WITHIN REACH.
--- NOTE | 2024-05-10 13:48 | NUR ---
VISITED DURING SPIRITUAL CARE ROUNDS. IN ROOM WITH PT. BOTH EXHIBIT STRONG RELATIONAL, YASH RESOURCES; IN OVERALL GOOD SPIRITS. PROVIDED SUPPORTIVE PRESENCE, PRAYER. PT AND EXPRESSED GRATITUDE, HOPE.
--- NOTE | 2024-05-10 13:58 | NUR ---
1400 FLAGYL INFUSING AT THIS TIME. PATIENT IS SITTING UPRIGHT IN THE CHAIR WITH HIS AT THE BEDSIDE. PATIENT WITH NO COMPLAINTS OF PAIN WHEN ASKED BY RN. BOWEL TONES ARE ACTIVE IN ALL FOUR QUADRANTS. MIDLINE ABDOMEN INCISION NOTED. BRUISE NOTED ON THE LLQ WELL. IV SITE FLUSHED WITH 10 ML NORMAL SALINE. IV DRESSING IS CLEAN, DRY, AND INTACT. PATIENT STATED NO FURTHER NEEDS AT THIS TIME, CALL LIGHT AND PERSONAL BELONGINGS ARE WITHIN REACH.
--- NOTE | 2024-05-10 15:06 | NUR ---
UR CLINICAL REVIEW: [facility]- [facility] INPATIENT CRITERIA EOCCO INPT 05/07/24 @ 2341 ORDER MATCHES REG CLINICALS SENT FOR AUTH REVIEW DISCHARGE TO HOME WHEN STABLE 05/10/24
--- NOTE | 2024-05-10 15:07 | NUR ---
PATIENT IS AMBULATING ON THE MEDICAL SURGICAL FLOOR INDEPENDENTLY AT THIS TIME.
--- NOTE | 2024-05-10 17:18 | NUR ---
PATIENT WALKED ANOTHER TEN LAPS AROUND MED SURG. AROUND 1500 TODAY.
--- NOTE | 2024-05-10 18:09 | NUR ---
PATIENT IS SITTING UPRIGHT IN THE CHAIR WITH SEVERAL VISITORS AT THE BEDSIDE. ZOSYN IS INFUSING AT 25 ML/HR AT THIS TIME. PATIENT WITH NO COMPLAINTS OF PAIN. PATIENT AND FAMILY STATED NO NEEDS AT THIS TIME, CALL LIGHT AND PERSONAL BELONGINGS ARE WITHIN REACH.
--- NOTE | 2024-05-10 19:15 | NUR ---
SHIFT REPORT RECEIVED FROM JULIO CERNA, PT VISITING WITH FAMILY MEMBERS.
--- NOTE | 2024-05-10 20:00 | NUR ---
PT SITTING UP IN CHAIR, ALERT AND CHEERFUL, DENIES PAIN AT THIS TIME, FRESH WATER GIVEN, NO OTHER REQUESTS MADE.
[2024-05-10] MEDS ORDERED: FAMOTIDINE 20 MG TAB PO SCH (21:00)
--- NOTE | 2024-05-10 22:00 | NUR ---
PT IN HALLWAY, WALKING OUT HIS SON AND FAMILY.
--- NOTE | 2024-05-10 23:00 | NUR ---
PT DOREEN QUIETLY, WITHOUT REQUESTS AT THIS TIME, WIFT ASLEEP AT THIS TIME.
[2024-05-11] VITALS (11 sets, daily range): BP systolic 95–108; BP diastolic 64–75
--- NOTE | 2024-05-11 00:30 | NUR ---
RN CALLED TO ROOM, IV ALARMING DUE TO A/B COMPLETED, PT WITHOUT REQUESTS AT THIS TIME.
--- NOTE | 2024-05-11 01:20 | NUR ---
PT APPEARS TO SLEEP, RESP EVEN AND REG, WITHOUT DISTRESS.
--- NOTE | 2024-05-11 02:28 | NUR ---
PT ASLEEP, RESP EVEN AND REG, ZOSYN HUNG PER ORDER, AFTER A FEW SECONDS NOTED BAG WASN'T HOOKED TO MAIN LINE AND DRAINED ON FLOOR, A/B REMOVED, SUPERVISIOR NOTIFIED, REQUESTED A NEW DOSE SINCE UNDETERMINED AMOUNT DRAINED ON FLOOR.
[2024-05-11] MEDS ORDERED: PIPERACILLIN/TAZOBACTAM 3.375 GM VIAL ONE (03:12)
--- NOTE | 2024-05-11 03:28 | NUR ---
NEW BAG OF ZOSYN RECEIVED FROM SUPERVISIOR AND HUNG, INFUSING WELL PER ORDER, PT CONTINUES TO SLEEP, RESP EVEN AND REG, IV SITE PATENT.
--- NOTE | 2024-05-11 04:50 | NUR ---
PT APPEARS TO SLEEP, RESP EVEN AND REG.
--- NOTE | 2024-05-11 06:52 | NUR ---
PT AWAKEN FOR VS, VS WNL FOR PT, FLAGYL STARTED PER ORDER, PT DENIES PAIN AT THIS TIME, IV SITE PATENT, PT DENIES PAIN, VOIDING WELL PER URINAL, FRESH WATER GIVEN PER [facility] CCTV TECHNICIAN.
--- NOTE | 2024-05-11 07:25 | NUR ---
REPORT RECEIVED FROM RADIO BOARD OPERATOR RN FLORENTINO. PATIENT IS AMBULATING IN THE ROOM INDEPENDENTLY. PATIENT IS AT THE BEDSIDE. PATIENT STATED NO NEEDS AT THIS TIME, CALL LIGHT AND RESONAL BELONGINGS ARE WITHIN REACH.
--- NOTE | 2024-05-11 08:37 | NUR ---
PT SITTING UP IN BED JUST FINISHED BREAKFAST AND WENT FOR A WALK BEFORE BREAKFAST - TOLERATED BOTH WELL. PT DENIES PAIN AT THIS TIME. ASSESSMENT COMPLETE.
--- NOTE | 2024-05-11 09:04 | NUR ---
pt up ambulating in butler, tolerating well.
--- NOTE | 2024-05-11 10:05 | NUR ---
PT BACK TO ROOM AFTER AMBULATING IN HALLS, TOLERATED WELL. IN ROOM. CALL LIGHT WITHIN REACH.
--- NOTE | 2024-05-11 10:32 | NUR ---
CONNECTED WITH PT WHILE HE WAS AMBULATING [facility]. PT EXHIBITED OVERALL GOOD SPIRITS, OPTIMISTIM, CONFIDENCE IN RECOVERY. PROVIDED SUPPORTIVE PRESENCE, GAVE ENCOURAGEMENT, PRAYER.
--- NOTE | 2024-05-11 10:50 | NUR ---
Pt. cont. to ambulate in the butler frequently. Pt denies needs.
--- NOTE | 2024-05-11 11:50 | NUR ---
COLE CONCURRENT REVIEW: [facility] [place]-CONCURRENT REVIEW COMPLETED FOR 05/10/24. PATIENT DOES NOT MEET RECOVERY MILESTONE. VARIANCE COMPLETED. DISCHARGE TO HOME IN 24-48 HOURS. 05/13/24
--- NOTE | 2024-05-11 12:40 | NUR ---
PATIENT IS SITTING UPRIGHT IN THE CHAIR WITH HIS SITTING ON THE COUCH. PATIENT WITH NO COMPLAINTS OF PAIN AT THIS TIME. IV SITE IN THE RIGHT AC FLUSHED WITH 10 ML NORMAL SALINE. IV DRESSING IS CLEAN, DRY, AND INTACT. ZOSYN IS INFUSING AT THIS TIME. BOWEL TONES ARE ACTIVE IN ALL FOUR QUADRANTS AND THE PATIENT IS ON A REGULAR DIET. LUNCH TRAY REMOVED FROM THE PATIENTS ROOM AT THIS TIME. MIDLINE ABDOMINAL SCAR INTACT. NO SWELLING NOTED. PATIENT STATED NO FURTHER NEEDS AT THIS TIME, CALL LIGHT AND PERSONAL BELONGINGS ARE WITHIN REACH.
--- NOTE | 2024-05-11 14:31 | NUR ---
PATIENT SO FAR HAS DONE ELEVEN LAPS TODAY.
--- NOTE | 2024-05-11 14:50 | NUR ---
PATIENT IS IN THE BATHROOM AT THIS TIME. PATIENT IS SITTING ON THE COUCH. CALL LIGHT AND PERSONAL BELONGINGS ARE WITHIN REACH.
--- NOTE | 2024-05-11 16:23 | NUR ---
PATIENT IS TAKING A SHOWER AT THIS TIME. PATIENT STATED NO NEEDS.
--- NOTE | 2024-05-11 17:17 | NUR ---
PATIENT IS SITTING AT THE EDGE OF BED AND EATING DINNER. PATIENT WITH SEVERAL VISITORS IN THE ROOM AT THIS TIME. CALL LIGHT AND PERSONAL BELONGINGS ARE WITHIN REACH.
--- NOTE | 2024-05-11 18:01 | NUR ---
PATIENT IS AMBULATING IN THE HALLWAY INDEPENDENTLY.
--- NOTE | 2024-05-11 19:08 | NUR ---
REPORT RECEIVED FROM JULIO. PT WITH IV POLE, ANTIBIOTIC INFUSING, AMBULATING HALLS. NO NEEDS.
--- NOTE | 2024-05-11 22:30 | NUR ---
INTO PT ROOM NEAR 2200, PT IN BED, EYES CLOSED, BUT WAKES WITH SOUND. HS MEDICATIONS ADMINISTERED WELL IV FLUSHED AND FLAGLY INFUSING. PT DENIES PAIN, AMBULATED MANY LAPS SINCE 0. ASSESSMENT COMPLETED. NO NEEDS AT THIS TIME. VOIDING PER URNINAL. ON COUCH WITH BLANKET COVERING.
[2024-05-12] VITALS (8 sets, daily range): BP systolic 93–103; BP diastolic 62–76
--- NOTE | 2024-05-12 02:22 | NUR ---
ANTIBIOTIC INFUSING. EMPTIED URINAL, UPDATED WHITE BOARD; PT DENIES NEEDING PAIN MEDICATION. HAS BEEN SLEEPING WHEN CHECKING ON PT; NO OTHER NEEDS AT THIS TIME
--- NOTE | 2024-05-12 03:03 | NUR ---
PT RESTING IN BED, EYES CLOSED. RR EVEN, UNLABORED. CALL LIGHT IN REACH.
--- NOTE | 2024-05-12 04:59 | NUR ---
PT RESTING IN BED, EYES CLOSED. RR EVEN, UNLABORED. IV MEDS INFUSING PER ORDER. CALL LIGHT IN REACH, IN ROOM.
--- NOTE | 2024-05-12 05:20 | NUR ---
VS AND I&O COMPLETED. PT DENIES PAIN. BOWEL TONES ACTIVE. NO NAUSEA STATED. ICE WATER PROVIDED. PT STATES NO OTHER NEEDS. CALL LIGHT IN REACH.
[2024-05-12 05:32] LABS: BASOPHILS 0.7 % (0-2); EOSINOPHILS 1.6 % (0-6); HEMATOCRIT 39.3 % (35.0-50.0); HEMOGLOBIN 13.6 g/dL (12.0-18.0); LYMPHOCYTES 33.6 % (24-44); MCH 33.8 (27-36); MCHC 34.5 g/dl (30-36); MCV 97.8 fl (81-99); MONOCYTES 9.3 % (0-12); NEUTROPHILS 54.8 % (39-80); PLATELET COUNT 277 K/uL (140-440); RBC 4.02 M/ul (4.3-5.7); RDW 12.4 (10.5-15.0)
[2024-05-12 06:00] LABS: ALBUMIN 2.9 g/dL (3.4-5.0); ALBUMIN/GLOBULIN RATIO 0.73 (1.1-2.4); ANION GAP 9.7 (7-21); BILIRUBIN, TOTAL 0.2 ng/dL (0.2-1.0); BUN/CREATININE RATIO 9.58 (6.0-28.6); CALCIUM 8.9 mg/dL (8.5-10.1); CREATININE, SERUM 0.73 mg/dL (0.70-1.30); POTASSIUM 3.7 mmol/L (3.5-5.1); PROTEIN, TOTAL 6.9 g/dL (6.4-8.2)
--- NOTE | 2024-05-12 06:27 | NUR ---
SCHEDULED MED PROVIDED. PT RESTING IN BED. PT STATES NO NEEDS AT THIS TIME. CALL LIGHT IN REACH.
--- NOTE | 2024-05-12 06:58 | NUR ---
PATIENT IS SITTING UPRIGHT IN BED WITH EYES OPEN AND RESPIRATIONS ARE EVEN AND UNLABORED. PATIENT WITH HIS SITTING ON THE COUCH. PATIENT STATED NO NEEDS AT THIS TIME. CALL LIGHT AND PERSONAL BELONGINGS ARE WITHIN REACH.
--- NOTE | 2024-05-12 07:39 | NUR ---
PATIENT IS LYING IN BED AND RESPIRATIONS ARE EVEN AND UNLABORED. FULL ASSESSMENT COMPLETE AND DOCUMENTED IN THE CHART. PATIENT IS INDEPENDENT IN THE ROOM. URINAL EMPTIED OF 850 ML OF LIGHT YELLOW URINE. PATIENT LUNG SOUNDS ARE CLEAR IN ALL LUNG KUNZ AND THEY ARE ON ROOM AIR. CARDIAC WITH NORMAL S1 AND S2 ON AUSCULTATION. RADIAL PULSES ARE STRONG BILATERALLY. SENSATION INTACT AND WITH NO COMPLAINTS OF NUMBNESS AND TINGLING. PATIENT WITH NO PAIN REPORTED WHEN ASKED BY RN. BOWEL TONES ARE ACTIVE IN ALL FOUR QUADRANTS. PATIENT IS ON A REGULAR DIET AND THEIR LAST BOWEL MOVEMENT WAS 05/09/24. SCAR NOTED ON THE MIDLINE ABDOMEN AND RIGHT WRIST/FOREARM. IV SITE FLUSHED WITH 10 ML NORMAL SALINE AND IT IS NOW SALINE LOCKED. IV DRESSING IS CLEAN, DRY, AND INTACT. PATIENT STATED NO FURTHER NEEDS AT THIS TIME. CALL LIGHT AND PERSONAL BELONGINGS ARE WITHIN REACH.
--- NOTE | 2024-05-12 08:52 | NUR ---
PATIENT IS AMBULATING IN THE HALLWAY INDEPENDENTLY AT THIS TIME.
--- NOTE | 2024-05-12 11:00 | NUR ---
Spoke with Dennis. He cont. to deny needs. States he has everything he needs to dc to home when he is cleared by . Family will assist him and transport him home.
--- NOTE | 2024-05-12 11:31 | NUR ---
PATIENT IS AMBULATING INDEPENDENTLY IN THE HALLWAY AT THIS TIME.
--- NOTE | 2024-05-12 12:13 | NUR ---
PATIENT IS SITTING UPRIGHT IN THE CHAIR ON THE PHONE. PATIENT IS SITTING ON THE COUCH. PATIENT STATED HE HAS NO PAIN WHEN ASKED BY THE RN. PATIENT LUNCH TRAY REMOVED AND HE HAS NO FURTHER NEEDS, CALL LIGHT AND PERSONAL BELONGINGS ARE WITHIN REACH.
--- NOTE | 2024-05-12 13:38 | NUR ---
PATIENT IS SITTING UPRIGHT IN THE CHAIR AND WATCHING A SOCCER GAME WITH HIS AT THE BEDSIDE. PATIENT WITH NO COMPLAINTS OF PAIN WHEN ASKED BY RN. BOWEL TONES ARE ACTIVE IN ALL FOUR QUADRANTS. MIDLINE ABDOMINAL SCAR NOTED. FLAGYL INFUSION STARTED AT THIS TIME. PATIENT AND HIS STATED NO FURTHER NEEDS, CALL LIGHT AND PERSONAL BELONGINGS ARE WITHIN REACH.
--- NOTE | 2024-05-12 14:20 | NUR ---
ZOSYN AND FLAGYL INFUSIONS COMPLETE. IV IN THE RIGHT AC FLUSHED WITH 10 ML NORMAL SALINE AND IS NOW SALINE LOCKED. IV DRESSING IS CLEAN, DRY, AND INTACT. PATIENT WITH HIS AND ANOTHER VISITOR AT THE BEDSIDE. PATIENT STATED NO FURTHER NEEDS AT THIS TIME. CALL LIGHT AND PERSONAL BELONGINGS ARE WITHIN REACH.
--- NOTE | 2024-05-12 15:24 | NUR ---
PATIENT IS AMBULATING IN THE HALLWAY INDEPENDENTLY.
--- NOTE | 2024-05-12 15:38 | NUR ---
PATIENT WALKED TOTAL OF TWENTY LAPS AROUND MED SURG.
[2024-05-12] MEDS ORDERED: PIPERACILLIN/TAZOBACTAM 3.375 GM in DEXTROSE 5% 100 ML IV SCH (16:00)
--- NOTE | 2024-05-12 16:28 | NUR ---
ZOSYN INFUSION STARTED AT THIS TIME. OMER, THE PHARMACIST STATED THE INFUSION CAN GO OVER THREE HOURS DUE TO PATIENT BEING DISCHARGED THIS EVENING. IV SITE IN THE PATIENTS RIGHT AC FLUSHED WITH 10 ML NORMAL SALINE. PATIENT IS SITTING ON THE COUCH. PATIENT AND FAMILY STATED NO NEEDS AT THIS TIME. CALL LIGHT AND PERSONAL BELONGINGS ARE WITHIN REACH.
--- NOTE | 2024-05-12 17:14 | NUR ---
PATIENT IS SITTING UPRIGHT IN THE CHAIR AND EATING DINNER. PATIENT WITH HIS SITTING ON THE COUCH. PATIENT STATED NO NEEDS AT THIS TIME. CALL LIGHT AND PERSONAL BELONGINGS ARE WITHIN REACH.
--- NOTE | 2024-05-12 20:05 | NUR ---
DR CARY IN ROOM WITH pt AND GOING OVER DISCHARGE INSTRUCTIONS/POC.
[2024-05-12] MEDS ORDERED: AUGMENTIN 500-1 EACH PO (20:16)
[2024-05-12] MEDS ORDERED: METRONIDAZOLE500 MG PO (20:17)
--- NOTE | 2024-05-12 20:25 | NUR ---
IN ROOM TO COMPLETE DISCHARGE VITAL SIGNS-VSS. pt LEFT RESTING IN RECLINER, DENEIS NEEDS OR CONCERNS. FAMIYL AT BEDSIDE. AWAITING DISCHARGE ORDER FROM MD. PRIMARY RN SREEDHAR UPDATED AND AWARE.
== END 2024-05-12 21:10 | disposition home or self-care (01) | DRG 862 ==
LOC: ED 16:09 → MS 18:53
PROVIDERS: Emergency Medicine; ADMIT Transplant Surgery; ATTEND Transplant Surgery
DX: T81.43XA Infection following a procedure, organ and space surgical site, initial encounter (principal); K65.1 Peritoneal abscess; Y83.8 Other surgical procedures as the cause of abnormal reaction of the patient, or of later complication, without mention of misadventure at the time of the procedure
CPT/HCPCS: 36415; 74177; 80048; 80053; 81003; 83605; 83690; 85025; 87040; 87502; A9270; J1644; J2543; J7030; J7121; Q9967; U0002